=== PATIENT | female | born 1970 | race Caucasian/White ===

== ENCOUNTER 2020-09-26 09:52 | Outpatient (REF) | payer OTHER, SELFPAY ==
[2020-09-26 15:01] LABS: Glucose Urine UA NEG (NEG); Leukocyte Esterase Urine NEG (NEG); Nitrite Urine NEG (NEG); PH 5.5 (5.0-8.0); Specific Gravity - Urine 1.025 (1.005-1.025); Urine Blood NEG (NEG); Urine Ketones NEG (NEG); Urine Protein NEG (NEG-TRACE)
[2020-09-26 15:10] LABS: Appearance Urine CLEAR; Color Urine YELLOW
[2020-09-27 07:22] LABS: BV Int Neg Control Negative (Negative); BV Int Pos Control Positive (Positive)
[2020-10-25 15:19] LABS: CT PCR NOT DETECTED (Not Detect.); NG PCR NOT DETECTED (Not Detect.)
== END 2020-09-26 09:53 | disposition home or self-care (01) ==
LOC: HO.LAB 09:52
PROVIDERS: PCP Internal Medicine; Referring Provider Internal Medicine; Visit Provider Advanced Practice Midwife
DX: B37.3 Candidiasis of vulva and vagina (principal); N89.8 Other specified noninflammatory disorders of vagina; R58 Hemorrhage, not elsewhere classified; Z11.8 Encounter for screening for other infectious and parasitic diseases; Z11.3 Encounter for screening for infections with a predominantly sexual mode of transmission
CPT/HCPCS: 81003; 87255; 87480; 87491; 87510; 87591; 87660

== ENCOUNTER 2020-10-02 10:08 | Outpatient (REF) | payer OTHER, SELFPAY ==
[2020-10-08 20:18] LABS: HPV mRNA E6/E7 rflx Not Detected (Not Detected)
== END 2020-10-02 10:09 | disposition home or self-care (01) ==
LOC: HO.LAB 10:08
PROVIDERS: PCP Internal Medicine; Referring Provider Internal Medicine; Visit Provider Advanced Practice Midwife
DX: Z01.419 Encounter for gynecological examination (general) (routine) without abnormal findings (principal); N89.8 Other specified noninflammatory disorders of vagina; B37.3 Candidiasis of vulva and vagina
CPT/HCPCS: 87624; 87625; 88141; 88142

== ENCOUNTER 2020-12-19 16:10 | Outpatient (REF) | payer OTHER, SELFPAY ==
--- NOTE | ~2020-12-19 | MM_ITS ---
EXAMINATION: MM SCREENING DIGITAL BREAST TOMOSYNTHESIS, BILATERAL CLINICAL INFORMATION: Screening. Asymptomatic. The lifetime risk of breast cancer based on the Tyrer-Cuzick Model is 10%. COMPARISON: Mammography: 06/27/2018, 03/03/2016 TECHNIQUE: Digital breast tomosynthesis is performed in both the craniocaudal and mediolateral oblique views along with computer-aided detection (CAD). Synthesized 2D images are generated from the tomosynthesis. Additional left MLO view is provided. FINDINGS: There are scattered areas of fibroglandular density (ACR BI-RADS breast composition Category b). Parenchymal pattern is similar to prior studies. There are no significant masses, abnormal calcifications, or other abnormalities. There is small oval intramammary node left breast 3:00 position. The axilla and skin contours are unremarkable. MM/MM tomosynthesis screening BI IMPRESSION: No significant changes from prior studies. ASSESSMENT: BI-RADS 2: Benign RECOMMENDATION: Routine annual mammography screening. This patient's information was entered into a reminder system with a target due date for their next mammogram.
== END 2020-12-19 16:11 | disposition home or self-care (01) ==
LOC: HO.MAMMO 16:10
PROVIDERS: PCP Internal Medicine; Visit Provider Internal Medicine
DX: Z12.31 Encounter for screening mammogram for malignant neoplasm of breast (principal)
CPT/HCPCS: 77063; 77067

== ENCOUNTER 2021-10-06 09:55 | Outpatient (REF) | payer OTHER, SELFPAY ==
[2021-10-07 09:32] LABS: BV Int Neg Control Negative (Negative); BV Int Pos Control Positive (Positive)
== END 2021-10-06 09:56 | disposition home or self-care (01) ==
LOC: HO.LAB 09:55
PROVIDERS: Visit Provider Advanced Practice Midwife
DX: Z01.419 Encounter for gynecological examination (general) (routine) without abnormal findings (principal); Z88.1 Allergy status to other antibiotic agents; Z88.0 Allergy status to penicillin; Z88.8 Allergy status to other drugs, medicaments and biological substances
CPT/HCPCS: 87480; 87510; 87660

== ENCOUNTER 2022-02-02 10:13 | Outpatient (REF) | payer OTHER, SELFPAY ==
--- NOTE | ~2022-02-02 | MM_ITS ---
EXAMINATION: MM SCREENING DIGITAL BREAST TOMOSYNTHESIS, BILATERAL CLINICAL INFORMATION: Screening. Asymptomatic. The lifetime risk of breast cancer based on the Tyrer-Cuzick Model is 9%. COMPARISON: Mammography: 12/19/2020, 06/27/2018, 03/03/2016 TECHNIQUE: Digital breast tomosynthesis is performed in both the craniocaudal and mediolateral oblique views along with computer-aided detection (CAD). Synthesized 2D images are generated from the tomosynthesis. FINDINGS: There are scattered areas of fibroglandular density (ACR BI-RADS breast composition Category b). There is a fine fibronodular parenchymal pattern similar to prior exams. There are scattered shifting fibroglandular parenchymal densities overall similar to prior studies. There is no significant mass or interval architectural abnormality, developing density, architectural changes. No abnormal calcifications. The axilla and skin contours are unremarkable. MM/MM tomosynthesis screening BI IMPRESSION: No significant changes from prior exams. ASSESSMENT: BI-RADS 2: Benign RECOMMENDATION: Routine annual mammography screening. This patient's information was entered into a reminder system with a target due date for their next mammogram.
== END 2022-02-02 10:14 | disposition home or self-care (01) ==
LOC: HO.MAMMO 10:13
PROVIDERS: Visit Provider Internal Medicine
DX: Z12.31 Encounter for screening mammogram for malignant neoplasm of breast (principal)
CPT/HCPCS: 77063; 77067

== ENCOUNTER 2022-10-14 08:46 | Outpatient (REF) | payer OTHER, SELFPAY ==
[2022-10-14 10:06] LABS: MANUAL DIFF FLAG NO
[2022-10-14 10:12] LABS: Basophils Absolute Auto 0.1 X10*3/uL (0.0-0.2); Basophils Percent Auto 1.2 % (0-2); Eosinophils Absolute Auto 0.5 X10*3/uL (0.0-0.4); Eosinophils Percent Auto 9.7 % (0-4); Hematocrit 45.8 % (37.0-47.0); Hemoglobin 15.2 g/dl (12.0-16.0); Imm Gran Abs Auto 0.01 X10*3/uL (0.00-0.03); Imm Gran Pct Auto 0.2 % (0.0-0.4); Lymphocytes Absolute Auto 1.6 X10*3/uL (1.2-4.9); Lymphocytes Percent Auto 30.9 % (20-40); Mean Corpuscular HGB Conc 33.2 g/dl (31.0-35.0); Mean Corpuscular Hemoglobin 28.7 pg (27.0-33.0); Mean Corpuscular Volume 86.6 fL (80.0-98.0); Mean Platelet Volume 9.3 fL (9.4-12.3); Monocytes Absolute Auto 0.4 X10*3/uL (0.1-1.2); Monocytes Percent Auto 7.4 % (2-11); Neutrophils Absolute Auto 2.6 x10*3/uL (2.0-8.3); Neutrophils Percent Auto 50.6 % (45-73); Platelet Count 178 X10*3/uL (160-400); Red Blood Count 5.29 X10*6/uL (4.20-5.50); Red Cell Distribution Width 11.7 % (11.0-16.0); White Blood Count 5.1 X10*3/uL (4.8-10.8)
[2022-10-14 11:09] LABS: Alanine Aminotransferase 27 U/L (0-31); Albumin Level 4.4 g/dL (3.5-5.0); Alkaline Phosphatase 106 U/L (39-117); Anion Gap 10 (12-20); Aspartate Amino Transferase 24 U/L (5-31); Bilirubin Total 0.4 mg/dL (0.0-1.0); Blood Urea Nitrogen 13 mg/dL (9-16); Calcium 9.7 mg/dL (8.4-10.2); Carbon Dioxide 29 mmol/L (22-29); Chloride 104 mmol/L (96-108); Cholesterol 261 mg/dL; Estimated Glomerular Filt Rate 52; Glucose Fasting 80 mg/dL (60-99); HDL Cholesterol 93 mg/dL; LDL Cholesterol Calculated 154 mg/dl; Potassium 4.1 mmol/L (3.3-5.1); Sodium 139 mmol/L (135-145); Thyroid Stimulating Hormone 3.22 uIU/mL (0.32-4.0); Total Protein 7.4 g/dL (6.5-8.0); Triglycerides 74 mg/dL
== END 2022-10-14 08:47 | disposition home or self-care (01) ==
LOC: HO.LAB 08:46
PROVIDERS: PCP Internal Medicine; Visit Provider Internal Medicine
DX: Z00.00 Encounter for general adult medical examination without abnormal findings (principal); Z13.0 Encounter for screening for diseases of the blood and blood-forming organs and certain disorders involving the immune mechanism; N95.1 Menopausal and female climacteric states
CPT/HCPCS: 36415; 80053; 80061; 84443; 85025

== ENCOUNTER 2023-02-05 09:24 | Outpatient (REF) | payer OTHER, SELFPAY ==
--- NOTE | ~2023-02-05 | MM_ITS ---
EXAMINATION: MM SCREENING DIGITAL BREAST TOMOSYNTHESIS, BILATERAL CLINICAL INFORMATION: Screening. Asymptomatic. The lifetime risk of breast cancer based on the Tyrer-Cuzick Model is 8%. COMPARISON: Mammography: 02/02/2022, 12/19/2020, 06/27/2018 TECHNIQUE: Digital breast tomosynthesis is performed in both the craniocaudal and mediolateral oblique views along with computer-aided detection (CAD). Synthesized 2D images are generated from the tomosynthesis. FINDINGS: There are scattered areas of fibroglandular density (ACR BI-RADS breast composition Category b). There are no significant masses, abnormal calcifications, or other abnormalities. Fibronodular parenchymal pattern is similar to prior studies. No developing density or architectural abnormality. The axilla and skin contours are unremarkable. There are no significant changes from prior exams. MM/MM tomosynthesis screening BI IMPRESSION: No mammographic evidence of malignancy. ASSESSMENT: BI-RADS 2: Benign RECOMMENDATION: Routine annual mammography screening. This patient's information was entered into a reminder system with a target due date for their next mammogram.
== END 2023-02-05 09:25 | disposition home or self-care (01) ==
LOC: HO.MAMMO 09:24
PROVIDERS: Visit Provider Internal Medicine
DX: Z12.31 Encounter for screening mammogram for malignant neoplasm of breast (principal)
CPT/HCPCS: 77063; 77067

== ENCOUNTER 2023-03-05 15:46 | Outpatient (REF) | payer OTHER, SELFPAY ==
[2023-03-06 12:08] LABS: BV Int Neg Control Negative (Negative); BV Int Pos Control Positive (Positive)
== END 2023-03-05 15:47 | disposition home or self-care (01) ==
LOC: HO.LAB 15:46
PROVIDERS: Visit Provider Physician Assistant Medical
DX: R30.0 Dysuria (principal)
CPT/HCPCS: 87086; 87088; 87186; 87480; 87510; 87660

== ENCOUNTER 2023-04-23 08:51 | Outpatient (REF) | payer OTHER, SELFPAY ==
[2023-04-23 11:23] LABS: Cholesterol 253 mg/dL; HDL Cholesterol 88 mg/dL; LDL Cholesterol Calculated 152 mg/dl; Triglycerides 65 mg/dL
== END 2023-04-23 08:52 | disposition home or self-care (01) ==
LOC: HO.LAB 08:51
PROVIDERS: PCP Internal Medicine; Visit Provider Internal Medicine
DX: E78.5 Hyperlipidemia, unspecified (principal)
CPT/HCPCS: 36415; 80061

== ENCOUNTER 2023-09-29 13:47 | Outpatient (AMB) | payer OTHER, SELFPAY ==
[2023-09-29 13:53] VITALS: BP 120/66; PULSE 70; O2SAT 99; BMI 26.1
--- NOTE | 2023-09-29 13:53 | MHC.PC.OV ---
Vital Signs 09/29/23 13:53 Height 5 ft 4 in Weight 152 lb BMI 26.1 BP 120/66 Blood Pressure Location Lt brachial Position Sitting Pulse 70 Pulse Source Pulse Oximeter Pulse Oximetry (%) 99 Oxygen Delivery Method Room Air Intake Visit Reasons: rash on buttocks Relay Record Clerk Required: No Green Building Materials Designer: Not Required per policy Accompanied by: Self / Same As Patient Allergies amoxicillin [AMOXICILLIN] Allergy (Unknown, Verified 09/29/23 13:53) RASH-HIVES, rash moxifloxacin [From AVELOX] Allergy (Unknown, Verified 09/29/23 13:53) RASH-HIVES penicillin G Allergy (Unknown, Verified 09/29/23 13:53) Unknown Quinolones [QUINOLONES] Allergy (Unknown, Verified 09/29/23 13:53) RASH-HIVES Quinolone Allergy (Unknown, Uncoded 09/29/23 13:53) hives Quinosone Allergy (Unknown, Uncoded 09/29/23 13:53) Unknown Medication List - Last Reconciled 09/30/23 by Checo Guzman MD clotrimazole-betamethasone 1-0.05 % 1 appl topical BID 2 weeks clotrimazole-betamethasone 1-0.05 % 1 appl topical BID 2 weeks clotrimazole-betamethasone 1-0.05 % 1 appl topical BID 2 weeks loratadine (Claritin RediTabs) 10 mg PO DAILY Tobacco use date assessed: 12/25/22 Dental Screening Dental Screen Date: 09/29/23 Did you have a dental visit in the last 12 months?: Yes Did you have a dental problem in the last 6 months where you did not have access to dental care?: No Was dental information given to patient?: Patient has dentist HPI rash on buttocks HPI Details rash on buttocks for a few days PFSH Medical History Left ear pain Physical exam Surgical History [place] teeth removed Status post right foot surgery H/O prior ablation treatment Family History Mother Stroke Social History Housing: House Alcohol intake: current Alcohol intake frequency: other Alcohol type: wine Patient Tobacco Use Status: Never used Tobacco e-Cigarette/Vaping Use: Never Used Second Hand Smoke Exposure: No service: No Current occupational status: employed Gender identity: Female Cognitive needs: No Hearing needs: No Vision needs: No Female Reproductive History Menstrual Age of Menarche: 10 Questionnaire Thrive Questionnaire Date Thrive assessed: 12/25/22 MACHO-7 AMB Questionnaire MACHO-7 Date MACHO - 7 assessed: 12/25/22 Source: Developed by Drs. Harley Jimenez, Erika Núñez, Jose Francisco Garcia and colleagues, with an educational jong from [employer]. Review of Systems Const Denies chills, Denies headache(s) and Denies weight loss ENT Denies headache(s) Card Denies chest pain, Denies syncope, Denies irregular heart rhythm and Denies dyspnea Resp Denies chest congestion, Denies cough and Denies dyspnea GI Denies abdominal pain, Denies change in stool character, Denies nausea and Denies vomiting Musc Denies deformity and Denies joint swelling Neuro Denies syncope and Denies headache(s) Physical exam (Primary Care) Vital Signs: Last Vital Signs Pulse 70 09/29/23 13:53 BP 120/66 09/29/23 13:53 Pulse Ox 99 09/29/23 13:53 Oxygen Delivery Method Room Air 09/29/23 13:53 BMI result Body Mass Index 26.1 Tobacco/Smoking Status: Tobacco use Status Tobacco use date assessed 12/25/22 09/29/23 13:58 Patient Tobacco Use Status Never used Tobacco 09/29/23 13:58 e-Cigarette/Vaping Use Never Used 09/29/23 13:58 Thrive Assessment: Date of Thrive Assessment Date Thrive assessed 12/25/22 09/29/23 13:58 Const General: cooperative, comfortable and no acute distress HENMT Head: Yes normal to inspection Eyes General: appearance normal, both eyes and all related structures Neck Neck: Yes normal visual inspection Skin Other: tinea corporis Assessment and Plan Assessment & Plan (1) Tinea corporis: Code(s): B35.4 - Tinea corporis Plan: rx Medications: New clotrimazole-betamethasone 1-0.05 % 1 appl topical BID 45 grams 2RF 2 weeks clotrimazole-betamethasone 1-0.05 % 1 appl topical BID 45 grams 3RF 2 weeks clotrimazole-betamethasone 1-0.05 % 1 appl topical BID 45 grams 2RF 2 weeks Coding Level of Care Code Est Pt Level 3 (37159) Diagnoses Tinea corporis B35.4
== END 2023-09-29 14:12 | disposition home or self-care (01) ==
PROVIDERS: PCP Internal Medicine; Visit Provider Internal Medicine
DX: B35.4 Tinea corporis (principal)
CPT/HCPCS: 99213

== ENCOUNTER 2023-10-14 12:42 | Outpatient (REF) | payer OTHER, SELFPAY ==
[2023-10-14 15:13] LABS: Appearance Urine Cloudy; Color Urine Yellow; Glucose Urine UA Negative (Negative); Leukocyte Esterase Urine Large (3+) (Negative); Nitrite Urine Negative (Negative); PH 5.5 (5.0-9.0); Specific Gravity - Urine <= 1.005 (1.005-1.025); UMIC TRIGGER UACC YES; Urine Blood Large (3+) (Negative); Urine Ketones Negative (Negative); Urine Protein Negative (Neg-Trace)
[2023-10-14 15:28] LABS: Bacteria Urine 1+ (None Seen); Hyaline Casts Urine 0-2 /LPF (0-2); Squamous Epithelial Cell Urine 0-2 /HPF (0-2); UACC Culture Trigger YES; WBC Urine >50 /HPF (0-5)
== END 2023-10-14 12:43 | disposition home or self-care (01) ==
LOC: HO.LAB 12:42
PROVIDERS: PCP Internal Medicine; Visit Provider Internal Medicine
DX: Z00.00 Encounter for general adult medical examination without abnormal findings (principal); R39.9 Unspecified symptoms and signs involving the genitourinary system; Z13.0 Encounter for screening for diseases of the blood and blood-forming organs and certain disorders involving the immune mechanism
CPT/HCPCS: 81001; 87086; 87088; 87186

== ENCOUNTER 2023-10-20 13:17 | Outpatient (AMB) | payer OTHER, SELFPAY ==
[2023-10-20 13:25] VITALS: BP 120/82; PULSE 100; O2SAT 99; BMI 26.3
--- NOTE | 2023-10-20 13:25 | MHC.PC.OV ---
Vital Signs 10/20/23 13:25 Height 5 ft 4 in Weight 153 lb BMI 26.3 BP 120/82 Blood Pressure Location Lt brachial Position Sitting Pulse 100 Pulse Source Pulse Oximeter Pulse Oximetry (%) 99 Oxygen Delivery Method Room Air Intake Visit Reasons: yeast infection Costume Cutter Required: No Carrot Harvester: Not Required per policy Accompanied by: Self / Same As Patient Allergies amoxicillin [AMOXICILLIN] Allergy (Unknown, Verified 10/20/23 14:45) RASH-HIVES, rash moxifloxacin [From AVELOX] Allergy (Unknown, Verified 10/20/23 14:45) RASH-HIVES penicillin G Allergy (Unknown, Verified 10/20/23 14:45) Unknown Quinolones [QUINOLONES] Allergy (Unknown, Verified 10/20/23 14:45) RASH-HIVES Quinolone Allergy (Unknown, Uncoded 10/20/23 14:45) hives Quinosone Allergy (Unknown, Uncoded 10/20/23 14:45) Unknown Medication List - Last Reconciled 10/21/23 by Checo Guzman MD clotrimazole-betamethasone 1-0.05 % 1 appl topical BID 2 weeks clotrimazole-betamethasone 1-0.05 % 1 appl topical BID 2 weeks clotrimazole-betamethasone 1-0.05 % 1 appl topical BID 2 weeks loratadine (Claritin RediTabs) 10 mg PO DAILY oxycodone 5 mg PO Q6H PRN sulfamethoxazole-trimethoprim 800-160 mg (Bactrim DS) 1 tab PO BID Tobacco use date assessed: 12/25/22 Dental Screening Dental Screen Date: 10/20/23 Did you have a dental visit in the last 12 months?: Yes Did you have a dental problem in the last 6 months where you did not have access to dental care?: No Was dental information given to patient?: Patient has dentist HPI yeast infection HPI Details perianal pain PFSH Medical History Coccydynia Left ear pain Physical exam Surgical History [place] teeth removed Status post right foot surgery H/O prior ablation treatment Family History Mother Stroke Social History Housing: House Alcohol intake: current Alcohol intake frequency: other Alcohol type: wine Patient Tobacco Use Status: Never used Tobacco e-Cigarette/Vaping Use: Never Used Second Hand Smoke Exposure: No service: No Current occupational status: employed Gender identity: Female Cognitive needs: No Hearing needs: No Vision needs: No Female Reproductive History Menstrual Age of Menarche: 10 Questionnaire Thrive Questionnaire Date Thrive assessed: 12/25/22 MACHO-7 AMB Questionnaire MACHO-7 Date MACHO - 7 assessed: 12/25/22 Source: Developed by Drs. Harley Jimenez, Erika Núñez, Jose Francisco Garcia and colleagues, with an educational jong from [employer]. Review of Systems Const Denies chills, Denies headache(s) and Denies weight loss ENT Denies headache(s) Card Denies chest pain, Denies syncope, Denies irregular heart rhythm and Denies dyspnea Resp Denies chest congestion, Denies cough and Denies dyspnea GI Denies abdominal pain, Denies change in stool character, Denies nausea and Denies vomiting Musc Denies deformity and Denies joint swelling Neuro Denies syncope and Denies headache(s) Physical exam (Primary Care) Vital Signs: Last Vital Signs Pulse 100 10/20/23 13:25 BP 120/82 10/20/23 13:25 Pulse Ox 99 10/20/23 13:25 Oxygen Delivery Method Room Air 10/20/23 13:25 BMI result Body Mass Index 26.3 Tobacco/Smoking Status: Tobacco use Status Tobacco use date assessed 12/25/22 10/20/23 13:26 Patient Tobacco Use Status Never used Tobacco 10/20/23 13:26 e-Cigarette/Vaping Use Never Used 10/20/23 13:26 Thrive Assessment: Date of Thrive Assessment Date Thrive assessed 12/25/22 10/20/23 13:26 Const General: cooperative, comfortable, no acute distress and alert Neck Neck: Yes no lymphadenopathy Thyroid: Thyroid normal Resp Effort & Inspection: normal respiratory effort Auscultation: clear to auscultation bilaterally Percussion: percussion normal Cardio Jugular venous distension: no JVD Palpation: normal PMI Rate: regular rate Rhythm: regular rhythm Heart sounds: S1 normal heart sound present and S2 normal heart sound present GI Inspection: Yes normal to inspection Palpation (GI): No hepatosplenomegaly present Skin General skin exam: no rashes or lesions noted Extrem General: Yes no clubbing, cyanosis or edema Assessment and Plan Assessment & Plan (1) Coccydynia: Code(s): M53.3 - Sacrococcygeal disorders, not elsewhere classified Plan: xr and rx Orders: Referrals General Surgery Referral K61.1 - Rectal abscess Medications: New oxycodone Partial Fill upon patient request. 5 mg PO Q6H PRN 20 tabs 0RF pain Coding Level of Care Code Est Pt Level 3 (67545) Diagnoses Coccydynia M53.3
== END 2023-10-20 13:44 | disposition home or self-care (01) ==
PROVIDERS: PCP Internal Medicine; Visit Provider Internal Medicine
DX: M53.3 Sacrococcygeal disorders, not elsewhere classified (principal)
CPT/HCPCS: 99213

== ENCOUNTER 2023-10-20 13:53 | Outpatient (REF) | payer OTHER, SELFPAY ==
--- NOTE | ~2023-10-20 | XR_ITS ---
EXAMINATION: XR PELVIS CLINICAL INFORMATION: Sacrococcygeal disorders. COMPARISON: None available. TECHNIQUE: AP view of the pelvis. FINDINGS: No fracture. Hip joint spaces are maintained. The femoral heads are smooth. Alignment is anatomic. Sacroiliac joints and pubic symphysis are normal. No abnormal soft tissue calcifications. There are tiny pelvic phleboliths. XR/XR pelvis 1-2V IMPRESSION: Normal pelvis.
== END 2023-10-20 13:54 | disposition home or self-care (01) ==
LOC: HO.XRAY 13:53
PROVIDERS: PCP Internal Medicine; Visit Provider Internal Medicine
DX: M53.3 Sacrococcygeal disorders, not elsewhere classified (principal)
CPT/HCPCS: 46600; 72170

== ENCOUNTER 2023-10-20 14:25 | Outpatient (AMB) | payer OTHER, SELFPAY ==
[2023-10-20 14:36] VITALS: BP 120/82; PULSE 100; BMI 26.3
--- NOTE | 2023-10-20 14:36 | MHC.OFFVIS ---
Intake Vital Signs 10/20/23 14:36 Height 5 ft 4 in Weight 153 lb 0.013 oz BMI 26.3 BP 120/82 Blood Pressure Location Lt brachial Position Sitting Pulse 100 Pulse Source Pulse Oximeter Intake Visit Reasons: Rectal abscess Intake Note: This patient presents for an assessment for rectal abscess. Patient c/o; reports yeast infection, reports completed one round of antibiotics, reports discomfort since last week of August 2023. Sporting Goods Salesperson Required: No Fish Filleter: Fish Filleter Present (Veena) and Fish Filleter offered & declined Accompanied by: Self / Same As Patient Allergies amoxicillin [AMOXICILLIN] Allergy (Unknown, Verified 10/20/23 14:45) RASH-HIVES, rash moxifloxacin [From AVELOX] Allergy (Unknown, Verified 10/20/23 14:45) RASH-HIVES penicillin G Allergy (Unknown, Verified 10/20/23 14:45) Unknown Quinolones [QUINOLONES] Allergy (Unknown, Verified 10/20/23 14:45) RASH-HIVES Quinolone Allergy (Unknown, Uncoded 10/20/23 14:45) hives Quinosone Allergy (Unknown, Uncoded 10/20/23 14:45) Unknown Medication List - Last Reconciled 10/20/23 by Karlos Blanca MD clotrimazole-betamethasone 1-0.05 % 1 appl topical BID 2 weeks clotrimazole-betamethasone 1-0.05 % 1 appl topical BID 2 weeks clotrimazole-betamethasone 1-0.05 % 1 appl topical BID 2 weeks loratadine (Claritin RediTabs) 10 mg PO DAILY oxycodone 5 mg PO Q6H PRN sulfamethoxazole-trimethoprim 800-160 mg (Bactrim DS) 1 tab PO BID HPI Rectal abscess HPI Details 53-year-old female referred for pain on the area of the tailbone. She says that she has had this for about 10 days now. She says that this hurts whenever she sits down or lies down in bed. She denies any palpable mass She says that she was being treated for a fungal infection of the gluteal area with clotrimazole betamethasone by Dr. Guzman for the past month. She denies any problems with bowel movements. She denies any bleeding per rectum. She actually points to the sacrococcygeal region as where the pain and tenderness is. She denies any recent trauma to the area. [facility] Medical History Coccydynia Left ear pain Physical exam Surgical History [place] teeth removed Status post right foot surgery H/O prior ablation treatment Family History Mother Stroke Social History Housing: House Alcohol intake: current Alcohol intake frequency: other Alcohol type: wine Patient Tobacco Use Status: Never used Tobacco e-Cigarette/Vaping Use: Never Used Second Hand Smoke Exposure: No service: No Current occupational status: employed Gender identity: Female Cognitive needs: No Hearing needs: No Vision needs: No Female Reproductive History Menstrual Age of Menarche: 10 Review of Systems Const Denies chills and Denies fever(s) Card Denies chest pain, Denies dyspnea and Denies dyspnea on exertion Resp Denies cough, Denies dyspnea and Denies dyspnea on exertion GI Denies hematochezia and Denies change in bowel habits Denies hematuria Musc Denies back pain and Denies limited range of motion Neuro Denies focal weakness and Denies convulsions Psych Denies depression and Denies mood swings Physical Exam Vital Signs: Last Vital Signs Pulse 100 10/20/23 14:36 BP 120/82 10/20/23 14:36 BMI result Body Mass Index 26.3 Const Other: Very anxious General: comfortable and no acute distress Orientation/consciousness: patient oriented x3 Neck Neck: Yes no lymphadenopathy Resp Auscultation: clear to auscultation bilaterally Cardio Rhythm: regular rhythm GI Other: No perianal swelling or redness, no cysts, no induration, no skin changes She is tender on palpation of the coccyx Palpation (GI): Soft to palpation, nontender and no guarding Neuro General: patient oriented x3 Office Procedures Anoscopy She was in keely-knife position. The anoscope was gently inserted. A full examination of the anal canal was done. There were no lesions seen but there is no fullness or induration. There was no bleeding. Digital exam shows no induration or tenderness in the anal canal. She was tender on the coccyx on palpation. There was no palpable mass or redness or swelling [id number] Assessment & Plan Assessment & Plan (1) Coccydynia: Code(s): M53.3 - Sacrococcygeal disorders, not elsewhere classified Plan: She has what appears to be coccydynia at this time. She is very tender to touch on the area of the tailbone. There is no pathology seen in the anal canal. There is no suggestion of any abscess or cyst I told her that the 1st step would be use of NSAIDs for control of the pain. I told her that she can take ibuprofen for this. I will order for an MRI of the pelvis to rule out any other pathology for now I will see her in the office to review this MRI. I assured her that at this point, there is no need to do an I and D for now. Orders: Orders MR pelvis w con 10/20/23 M53.3 - Sacrococcygeal disorders, not elsewhere classified Coding Level of Care Code New Pt Level 3 (32664) Diagnoses Coccydynia M53.3 CPT Codes Details - CPT: 32995-[id number] ([id number])
== END 2023-10-20 15:17 | disposition home or self-care (01) ==
PROVIDERS: PCP Internal Medicine; Visit Provider Surgery
DX: M53.3 Sacrococcygeal disorders, not elsewhere classified (principal)
CPT/HCPCS: 46600; 99203

== ENCOUNTER 2023-11-05 17:30 | Outpatient (REF) | payer OTHER, SELFPAY ==
--- NOTE | ~2023-11-05 | MR_ITS ---
EXAMINATION: MR PELVIS WITHOUT CONTRAST CLINICAL INFORMATION: Sacrococcygeal disorder. Patient reports bilateral pain. COMPARISON: X-ray the pelvis October 2023. TECHNIQUE: MRI the pelvis is performed without contrast on a high-field MRI scanner tailored to evaluate the sacroiliac joints in particular. FINDINGS: SACROILIAC JOINTS: There is some minimal edema in the auodz-ooslayf-vtaf-left ligamentous portion of the sacroiliac articulation. There articular portion of the articulation is normal without effusion, erosions, or marrow edema. There is no fracture. PARTIALLY VISUALIZED LUMBOSACRAL SPINE: There is some minimal endplate edema across the left side of the L5-S1 disc space and right side of the L3-L4 disc space, likely reflective of focal degenerative disc disease. There is decreased T2 signal within both discs compatible with degenerative changes. The remaining visualized bone is unremarkable. NEUROVASCULAR STRUCTURES: Normal. INTRAPELVIC SOFT TISSUES: Normal. MUSCLES/TENDONS: Normal. MR/MR pelvis wo con IMPRESSION: 1. Minimal edema in the right greater than left ligamentous portion of the sacroiliac articulation perhaps related to subacute/acute ligamentous partial tear. No abnormality of the articular portion of the joints. 2. Mild degenerative disc disease in the partially visualized lumbosacral spine.
== END 2023-11-05 17:31 | disposition home or self-care (01) ==
LOC: HO.MRI 17:30
PROVIDERS: PCP Internal Medicine; Visit Provider Surgery
DX: M53.3 Sacrococcygeal disorders, not elsewhere classified (principal)
CPT/HCPCS: 72195

== ENCOUNTER 2023-11-17 15:08 | Outpatient (AMB) | payer OTHER, SELFPAY ==
--- NOTE | 2023-11-17 15:18 | MHC.OFFVIS ---
Intake Intake Visit Reasons: MRI follow-up Intake Note: This patient presents for a follow-up assessment for MRI results. Patient c/o; reports ? recurrence yeast infection, reports redness, reports soreness, reports using Clotrimazole / Betamethasone which cleared the yeast it came back. Classics Teacher Required: No Accompanied by: Self / Same As Patient Allergies amoxicillin [AMOXICILLIN] Allergy (Unknown, Verified 11/17/23 15:18) RASH-HIVES, rash moxifloxacin [From AVELOX] Allergy (Unknown, Verified 11/17/23 15:18) RASH-HIVES penicillin G Allergy (Unknown, Verified 11/17/23 15:18) Unknown Quinolones [QUINOLONES] Allergy (Unknown, Verified 11/17/23 15:18) RASH-HIVES Quinolone Allergy (Unknown, Uncoded 11/17/23 15:18) hives Quinosone Allergy (Unknown, Uncoded 11/17/23 15:18) Unknown Medication List - Last Reconciled 11/17/23 by Karlos Blanca MD clotrimazole-betamethasone 1-0.05 % 1 appl topical BID 2 weeks clotrimazole-betamethasone 1-0.05 % 1 appl topical BID 2 weeks clotrimazole-betamethasone 1-0.05 % 1 appl topical BID 2 weeks loratadine (Claritin RediTabs) 10 mg PO DAILY oxycodone 5 mg PO Q6H PRN sulfamethoxazole-trimethoprim 800-160 mg (Bactrim DS) 1 tab PO BID HPI MRI follow-up HPI Details She is here for follow-up to discuss her MRI. I sent him for an MRI of the pelvis in view of her complaints of coccydynia. She says she actually feels better. She still has some pain mostly on the sacral area now but she says that this is much improved. [facility] Medical History Coccydynia Left ear pain Physical exam Surgical History [place] teeth removed Status post right foot surgery H/O prior ablation treatment Family History Mother Stroke Social History Housing: House Alcohol intake: current Alcohol intake frequency: other Alcohol type: wine Patient Tobacco Use Status: Never used Tobacco e-Cigarette/Vaping Use: Never Used Second Hand Smoke Exposure: No service: No Current occupational status: employed Gender identity: Female Cognitive needs: No Hearing needs: No Vision needs: No Female Reproductive History Menstrual Age of Menarche: 10 Review of Systems Const Denies chills and Denies fever(s) Card Denies chest pain, Denies dyspnea and Denies dyspnea on exertion Resp Denies cough, Denies dyspnea and Denies dyspnea on exertion GI Denies hematochezia and Denies change in bowel habits Denies hematuria Musc Denies back pain and Denies limited range of motion Neuro Denies focal weakness and Denies convulsions Psych Denies depression and Denies mood swings Physical Exam Const Other: Anxious General: comfortable and no acute distress Resp Effort & Inspection: normal respiratory effort Cardio Rate: regular rate Back/Spine/Pelvis Other: No palpable masses the lower back, no significant tenderness Assessment & Plan Assessment & Plan (1) Coccydynia: Code(s): M53.3 - Sacrococcygeal disorders, not elsewhere classified Plan: Her MRI actually shows what may be some edema in the sacroiliac joint risks may suggest a small partial tear. I explained to her this finding. Does state that she is clinically much better. I told her that she can continue with NSAIDs and pain medications She understands the option of being referred to a pain specialist down the line for this. She also was worried about what she thought was fungal infection of the perianal area. Examination today does not suggest this although there is some perianal redness. I told her to just observe good hygiene and to keep the area clean and dry for now. She can otherwise keep using her clotrimazole cream. She understands the plan and is comfortable with this. Coding Level of Care Code Est Pt Level 3 (43806) Diagnoses Coccydynia M53.3
== END 2023-11-17 15:32 | disposition home or self-care (01) ==
PROVIDERS: PCP Internal Medicine; Visit Provider Surgery
DX: M53.3 Sacrococcygeal disorders, not elsewhere classified (principal)
CPT/HCPCS: 99213

== ENCOUNTER → 2023-11-17 15:08 | Outpatient (BNVA) | payer OTHER, SELFPAY | PROVIDERS: PCP Internal Medicine; Visit Provider Surgery ==

== ENCOUNTER → 2023-12-08 08:51 | Outpatient (BNVA) | payer OTHER, SELFPAY | PROVIDERS: PCP Internal Medicine; Visit Provider Advanced Practice Midwife ==

== ENCOUNTER 2024-04-05 14:53 | Outpatient (REF) | payer OTHER, SELFPAY | END 2024-04-05 14:54 | disposition home or self-care (01) | LOC: HO.MAMMO 14:53 | PROVIDERS: PCP Internal Medicine; Visit Provider Internal Medicine | DX: Z12.31 Encounter for screening mammogram for malignant neoplasm of breast (principal) | CPT/HCPCS: 77063; 77067 ==

== ENCOUNTER → 2024-04-05 15:00 | Outpatient (BNV) | payer OTHER, SELFPAY | PROVIDERS: PCP Internal Medicine; Visit Provider Radiology Diagnostic Radiology | DX: Z12.31 Encounter for screening mammogram for malignant neoplasm of breast (principal) | CPT/HCPCS: 77063; 77067 ==

== ENCOUNTER 2024-04-11 08:29 | Outpatient (REF) | payer OTHER, SELFPAY ==
[2024-04-11 09:13] LABS: Appearance Urine Clear; Color Urine Yellow; Glucose Urine UA Negative (Negative); Leukocyte Esterase Urine Small (1+) (Negative); Nitrite Urine Negative (Negative); PH 6.5 (5.0-9.0); UMIC TRIGGER UACC YES; Urine Blood Negative (Negative); Urine Ketones Negative (Negative); Urine Protein Negative (Neg-Trace)
[2024-04-11 09:28] LABS: Bacteria Urine None Seen (None Seen); Hyaline Casts Urine 0-2 /LPF (0-2); RBC Urine 0-2 /HPF (0-2); Squamous Epithelial Cell Urine 0-2 /HPF (0-2); UACC Culture Trigger YES; WBC Urine 0-5 /HPF (0-5)
[2024-04-11 09:31] LABS: Cholesterol 241 mg/dL (<200); HDL Cholesterol 83 mg/dL (>40); LDL Cholesterol Calculated 139 mg/dL (<100); Triglycerides 95 mg/dL (<150)
== END 2024-04-11 08:30 | disposition home or self-care (01) ==
LOC: HO.LAB 08:29
PROVIDERS: PCP Internal Medicine; Visit Provider Internal Medicine
DX: E78.5 Hyperlipidemia, unspecified (principal); R39.9 Unspecified symptoms and signs involving the genitourinary system
CPT/HCPCS: 36415; 80061; 81001; 81003; 87086

== ENCOUNTER 2024-06-05 13:44 | Outpatient (AMB) | payer BC, SELFPAY ==
[2024-06-05 13:49] VITALS: BP 118/78; PULSE 83; O2SAT 98; BMI 26.1
--- NOTE | 2024-06-05 13:49 | MHC.PC.OV ---
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 Accompanied by: Self / Same As Patient Allergies amoxicillin [AMOXICILLIN] Allergy (Unknown, Verified 06/05/24 13:49) RASH-HIVES, rash moxifloxacin [From AVELOX] Allergy (Unknown, Verified 06/05/24 13:49) RASH-HIVES penicillin G Allergy (Unknown, Verified 06/05/24 13:49) Unknown Quinolones [QUINOLONES] Allergy (Unknown, Verified 06/05/24 13:49) RASH-HIVES Quinolone Allergy (Unknown, Uncoded 06/05/24 13:49) hives Quinosone Allergy (Unknown, Uncoded 06/05/24 13:49) Unknown Medication List - Last Reconciled 06/06/24 by Checo Guzman MD clotrimazole-betamethasone 1-0.05 % 1 appl topical BID 2 weeks clotrimazole-betamethasone 1-0.05 % 1 appl topical BID 2 weeks clotrimazole-betamethasone 1-0.05 % 1 appl topical BID 2 weeks loratadine (Claritin RediTabs) 10 mg PO DAILY Tobacco use date assessed: 06/05/24 Dental Screening Dental Screen Date: 10/20/23 Did you have a dental visit in the last 12 months?: Yes Did you have a dental problem in the last 6 months where you did not have access to dental care?: No Was dental information given to patient?: Patient has dentist HPI PE HPI Details Healthy [facility] Medical History Coccydynia Left ear pain Physical exam Surgical History [place] teeth removed Status post right foot surgery H/O prior ablation treatment Family History Mother Stroke Social History Housing: House Alcohol intake: current Alcohol intake frequency: other Alcohol type: wine Patient Tobacco Use Status: Never used Tobacco Tobacco use type: Cigarette e-Cigarette/Vaping Use: Never Used Second Hand Smoke Exposure: No service: No Current occupational status: employed Gender identity: Female Cognitive needs: No Hearing needs: No Vision needs: No Female Reproductive History Menstrual Age of Menarche: 10 Questionnaire PHQ-9 Over the last 2 weeks, how often have you been bothered by any of the following problems? 1. Little interest or pleasure in doing things: not at all 2. Feeling down, depressed, or hopeless: not at all 3. Trouble falling or staying asleep, or sleeping too much: not at all 4. Feeling tired or having little energy: not at all 5. Poor appetite or overeating: not at all 6. Feeling bad about yourself - or that you are a failure or have let yourself or your family down: not at all 7. Trouble concentrating on things, such as reading the newspaper or watching television: not at all 8. Moving or speaking so slowly that other people could have noticed. Or the opposite - being so fidgety or restless that you have been moving around a lot more than usual: not at all 9. Thoughts that you would be better off or of hurting yourself in some way: not at all Total score: 0 Depression Screening Interpretation: Negative Depression Screening Done: Yes 63024 - PHQ-9 Billing: Yes Source: Developed by Drs. Harley Jimenez, Erika Núñez, Jose Francisco Garcia and colleagues, with an educational jong from [facility]. Thrive Questionnaire Date Thrive assessed: 06/05/24 I am a: Patient What is your living situation today?: I have a steady place to live Within the past 12 months, did the food you bought not last and you didn't have the money to get more?: Never true Within the past 12 months, did you worry whether your food would run out before you got money to buy more?: Never true Do you have trouble paying for medicines?: No Do you have trouble getting transportation to medical appointments?: No Do you have trouble paying your heating and electricity bill?: No Do you have trouble taking care of your child, family member or friend?: No Do you have trouble with day-to-day activities such as bathing, preparing meals, shopping, managing finances, etc.?: No Are you currently unemployed and looking for a job?: No Are you interested in more education?: No THRIVE Score: 0 AUDIT C Alcohol Use Questionnaire (AUDIT-C) 1. How often do you have a drink containing alcohol?: Never 3. How often do you have six or more drinks on one occasion?: Never Total Score: 0 Score Reviewed/Action Taken: No MACHO-7 AMB Questionnaire MACHO-7 Date MACHO - 7 assessed: 06/05/24 Feeling nervous, anxious, or on edge: 0 = Not at all Not being able to stop or control worryin = Not at all Worrying too much about different things: 0 = Not at all Trouble relaxin = Not at all Being so restless that it is hard to sit still: 0 = Not at all Becoming easily annoyed or irritable: 0 = Not at all Feeling afraid as if something awful might happen: 0 = Not at all Total MACHO-7 score (0-4 normal; 5-9 mild; 10-14 moderate; 15-21 severe): 0 Source: Developed by Drs. Harley Jimenez, Erika Núñez, Jose Francisco Garcia and colleagues, with an educational jong from [facility]. MACHO-7 Assessment Billing MACHO-7 Assessment Tool: MACHO-7 Assessment 80135 Review of Systems Const Denies chills, Denies fatigue, Denies headache(s) and Denies weight loss Eyes Denies change in vision, Denies diplopia and Denies eye pain ENT Denies vertigo, Denies dizziness, Denies headache(s) and Denies nasal discharge Card Denies chest pain, Denies rapid heart rate and Denies dyspnea on exertion Resp Denies chest congestion, Denies cough, Denies pain with cough and Denies dyspnea on exertion GI Denies abdominal pain, Denies hematochezia and Denies change in bowel habits Musc Denies myalgias, Denies arthralgias and Denies joint swelling Skin/Breast Denies lesions and Denies unusual bruising Neuro Denies vertigo, Denies dizziness, Denies headache(s) and Denies focal weakness Endo Denies fatigue Physical exam (Primary Care) Vital Signs: Last Vital Signs Pulse 83 06/05/24 13:49 BP 118/78 06/05/24 13:49 Pulse Ox 98 06/05/24 13:49 Oxygen Delivery Method Room Air 06/05/24 13:49 BMI result Body Mass Index 26.1 Tobacco/Smoking Status: Tobacco use Status Tobacco use date assessed 06/05/24 06/05/24 13:54 Patient Tobacco Use Status Never used Tobacco 06/05/24 13:54 Tobacco use type Cigarette 06/05/24 13:54 e-Cigarette/Vaping Use Never Used 06/05/24 13:54 PHQ-9: PHQ-9 Score PHQ-9: Total score 0 06/05/24 13:54 Depression Screening Interpretation: Negative Thrive Assessment: Date of Thrive Assessment Date Thrive assessed 06/05/24 06/05/24 13:54 Const General: cooperative, healthy appearing and no acute distress Orientation/consciousness: oriented to person, oriented to place and oriented to time HENMT Head: Yes normal to inspection, Yes normocephalic and Yes atraumatic Mouth: Normal oral and palatal mucosa present and tongue normal Throat: Yes posterior oropharynx normal and Yes uvula midline Eyes General: appearance normal, both eyes and all related structures Neck Neck: Yes normal visual inspection, Yes full ROM and Yes no lymphadenopathy Thyroid: Thyroid normal Carotids: normal carotid upstroke Chest Chest palpation & inspection: normal inspection of the chest Resp Effort & Inspection: normal respiratory effort and able to speak in complete sentences Auscultation: clear to auscultation bilaterally Cardio Jugular venous distension: no JVD Palpation: normal PMI Rate: regular rate Rhythm: regular rhythm Heart sounds: S1 normal heart sound present and S2 normal heart sound present GI Inspection: Yes normal to inspection Palpation (GI): Soft to palpation and No hepatosplenomegaly present Auscultation: normal bowel sounds General: Yes no CVA tenderness Back/Spine/Pelvis Back: no CVA tenderness Skin General skin exam: no rashes or lesions noted Neuro General: oriented to person, oriented to place and oriented to time Extrem General: Yes normal to inspection and Yes full ROM Assessment and Plan Assessment & Plan (1) Physical exam: Code(s): Z00.00 - Encounter for general adult medical examination without abnormal findings Plan: stable; do labs Orders: Orders Complete Blood Count Auto Diff 06/05/24 Z13.0 - Encounter for screening for diseases of the blood and blood-forming organs and certain disorders involving the immune mechanism Comprehensive [place]. Panel Fast 06/05/24 Z13.9 - Encounter for screening, unspecified Lipid Panel 06/05/24 Z13.220 - Encounter for screening for lipoid disorders Thyroid Stimulating Hormone 06/05/24 Z13.29 - Encounter for screening for other suspected endocrine disorder Coding Level of Care Code Est Pt Prev Care 40-64y(90939) Diagnoses Physical exam Z00.00 Additional Codes MACHO-7 Assessment Billing - MACHO-7 Assessment Tool: MACHO-7 Assessment 64247 ([id number])
== END 2024-06-05 14:06 | disposition home or self-care (01) ==
PROVIDERS: PCP Internal Medicine; Visit Provider Internal Medicine
DX: Z00.00 Encounter for general adult medical examination without abnormal findings (principal)
CPT/HCPCS: 99396

== ENCOUNTER 2024-11-08 08:45 | Outpatient (REF) | payer OTHER, SELFPAY ==
--- OUTSIDE RECORDS SUMMARY | 2024-11-08 09:02 | XMS_ITS | Data Portability ---
Author Organization [facility] [address] Address [address] [place] [id number] Assessment No assessment recorded. Plan of Treatment Reminders Order Date Submit Date Provider Last Modified By Organization Details Last Modified Time Details Appointments None recorded. Lab culture, urine 2023 024 [place] [facility] ([facility], [address] [place] [address], [place], [address], 4 18:06:02 urinalysis, dipstick 2023 024 [place] [address] [facility], [address] [place], [address], 4 20:25:10 Referral None recorded. Procedures None recorded. Surgeries None recorded. Imaging None recorded. Medication Orders Pyridium 200 mg tablet 2023 024 [facility] #[id number], [address] [place], [address], 4 20:25:09 sulfamethox azole 800 mg-trimetho prim 160 mg tablet 2023 024 [facility] #[id number], [address] [place], [address], 4 20:25:10 Diflucan 150 mg tablet 2023 024 [facility] #[id number], [address] [place], [address], 20:25:10 Patient TargetsNo targets recorded. Patient Instructions Encounter Date Encounter Id Patient Instructions Last Modified By Organization Details Last Modified Time 02/08/2024 [id number] painful urinatio n (dysuria): care instructions [email or web address] Not available 02/08/2024 20:25:07 Urinary Tract Infections (UTI) in Men: Care Instructions [email or web address] Not available 02/08/2024 20:25:07 specimen collection & handling* MARGARETTE Not available 02/11/2024 09:58:28 Patient strongly advised to go to the ER if any new onset signs and symptoms or any worsening of current signs and symptoms. Patient advised to follow up with PCP within 5-7 days. Patient expresses clear understanding of the above advice and agrees. [email or web address] Not available 02/16/2024 20:32:33 Reason for Referral None Reported. Results Created Date Observation Date Name Description Value Unit Range Abnormal Flag Note LastModifiedBy Organization Detail LastModifiedTime 02/08/2002/11/2024 URINE CULTU REARISTEO NE urine culture, routine FINAL REPORT abnormal Not Available [facility] ([facility]) [address] [facility], [place], [address], 02/11/2024 12:06:14 02/08/2002/11/2024 URINE CULTU REARISTEO NE result 1 ESCHER ICHIA COLI abnormal Cefaz nasir <=4 ug/mL Cefaz nasir with an PERRY <=16 predi cts susce ptibi lity to the oral agent s cefac harvey, cefdi roberto carlos, cefpo doxim e, cefpr ozil, cefur oxime , cepha lexin , and lorac arbef when used for thera py of uncom plica fer urina ry tract infec tions due to E. coli, Klebs iella pneum oniae , and Prote us mirab ilis. 10,00 0-25, 000 colon y formi ng units per mL Not Available [facility] ([facility]) [address] [facility], [place], [address], 02/11/2024 12:06:14 02/08/20 24 02/11/2024 URINE CULTU RE, ROUTI NE antimicrobia l susceptibili ty COMMEN T S = Susce ptibl e; I = Inter media te; R = Resis tant P = Posit amarilys; N = Negat amarilys MICS are expre ssed in micro grams per mL Antib iotic RSLT# 1 RSLT# 2 RSLT# 3 RSLT# 4 Amoxi cilli n/Cla vulan ic Acid S Ampic illin S Cefep shlomo S Ceftr iaxon e S Cefur oxime S Cipro floxa joleen S Ertap enem S Genta micin S Imipe nem S Levof loxac in S Merop enem S Nitro furan toin S Piper acill in/Ta zobac dailey S Tetra cycli ne S Tobra mycin S Trime thopr im/Lux lfa S Not Available [facility] ([facility]) [address] [facility], [place], [address], 02/11/2024 12:06:14 02/08/20 24 02/08/2024 urina lysis , dipst ick Unknown Analyte Normal = light yellow Not Available [facility] [address] [place] [address], [phone], 02/08/2024 18:21:26 02/08/20 24 02/08/2024 urina lysis , dipst ick Unknown Analyte Light Yellow Not Available [facility] [address] [place] [address], [phone], 02/08/2024 18:21:26 02/08/20 24 02/08/2024 urina lysis , dipst ick Unknown Analyte Normal = clear Not Available [facility] [address] [place] [address], [phone], 02/08/2024 18:21:26 02/08/20 24 02/08/2024 urina lysis , dipst ick Unknown Analyte Clear Not Available [facility] [address] [place] [address], [phone], 02/08/2024 18:21:26 02/08/20 24 02/08/2024 urina lysis , dipst ick Unknown Analyte Normal = negati ve Not Available [facility] [address] [place] [address], [phone], 02/08/2024 18:21:26 02/08/20 24 02/08/2024 urina lysis , dipst ick Unknown Analyte Negati ve Not Available [facility] [address] [place] [address], [phone], 02/08/2024 18:21:26 02/08/20 24 02/08/2024 urina lysis , dipst ick Unknown Analyte Normal = Negati ve Not Available [facility] [address] [place] [address], [phone], 02/08/2024 18:21:26 02/08/20 24 02/08/2024 urina lysis , dipst ick Unknown Analyte Negati ve Not Available [facility] [address] [place] [address], [phone], 02/08/2024 18:21:26 02/08/20 24 02/08/2024 urina lysis , dipst ick Unknown Analyte Normal = Negati ve Not Available [facility] [address] [place] [address], [phone], 02/08/2024 18:21:26 02/08/20 24 02/08/2024 urina lysis , dipst ick Unknown Analyte Negati ve Not Available [facility] [address] [place] [address], [address], 02/08/2024 18:21:26 02/08/20 24 02/08/2024 urina lysis , dipst ick Unknown Analyte Normal = 1.010, 1.015, 1.020 Not Available [facility] [address] [place] [address], [phone], 02/08/2024 18:21:26 02/08/20 24 02/08/2024 urina lysis , dipst ick Unknown Analyte 1.010 Not Available [address], [phone], 02/08/2024 18:21:26 02/08/20 24 02/08/2024 urina lysis , dipst ick Unknown Analyte Normal = Negati ve Not Available [facility] ie [address], [address], 02/08/2024 18:21:26 02/08/20 24 02/08/2024 urina lysis , dipst ick Unknown Analyte Modera te Not Available [facility] ie [address], [address], 02/08/2024 18:21:26 02/08/20 24 02/08/2024 urina lysis , dipst ick Unknown Analyte Normal = 6.5, 7.0, 7.5, 8.0 Not Available [facility] ie [address], [address], 02/08/2024 18:21:26 02/08/20 24 02/08/2024 urina lysis , dipst ick Unknown Analyte 7.0 Not Available [address], [address], 02/08/2024 18:21:26 02/08/20 24 02/08/2024 urina lysis , dipst ick Unknown Analyte Normal = Negati ve Not Available [facility] ie [address], [address], 02/08/2024 18:21:26 02/08/20 24 02/08/2024 urina lysis , dipst ick Unknown Analyte Negati ve Not Available [facility] [address] [place] [address], [phone], 02/08/2024 18:21:26 02/08/20 24 02/08/2024 urina lysis , dipst ick Unknown Analyte Normal = 0.2, 1.0 Not Available [facility] [address] [place] [address], [address], 02/08/2024 18:21:26 02/08/20 24 02/08/2024 urina lysis , dipst ick Unknown Analyte 0.2 E.U./d L Not Available [facility] [address] [place] [address], [phone], 02/08/2024 18:21:26 02/08/20 24 02/08/2024 urina lysis , dipst ick Unknown Analyte Normal = Negati ve Not Available [facility] [address] [place] [address], [phone], 02/08/2024 18:21:26 02/08/20 24 02/08/2024 urina lysis , dipst ick Unknown Analyte Negati ve Not Available [facility] [address] [place] [address], [address], 02/08/2024 18:21:26 02/08/20 24 02/08/2024 urina lysis , dipst ick Unknown Analyte Normal = Negati ve Not Available [facility] [address] [place] [address], [phone], 02/08/2024 18:21:26 02/08/20 24 02/08/2024 urina lysis , dipst ick Unknown Analyte Small Not Available [facility] [address] [place] [address], [phone], 02/08/2024 18:21:26 Result Notes None recorded. Problems No Known Problems Medical Equipment None Reported. Allergies Allergen ID Allergen Name Allergen Category Reaction Reaction Severity Criticality Documentation Date Start Date Code Code System Note Provider Name and Address Organization Details Recorded Time [id number] amoxicill in medicatio n Not available Not available Not available 02/08/2024 723 RxNorm ROSANA ELIZABETHO null, [place] - [facility] 18:18:43 512152 Product containin g penicilli n and antibioti c (product) medicatio n Not available Not available Not available 02/08/2024 09832 05 SNOMED ROSANA MINEO null, [place] - [facility] 18:18:48 005542 Product containin g quinolone and antibioti c (product) medicatio n Not available Not available Not available 02/08/2024 08028 008 SNOMED ROSANA MINEO null, [place] - [facility] 18:18:59 [id number] Avelox medicatio n Not available Not available Not available 02/08/2024 30544 6 RxNorm ROSANA MINEO null, [place] - [facility] 18:19:07 Medications Name Sig Start Date Stop Date Status Note LastModified by Organization Details LastModified Time Pyridium 200 mg tablet Take 1 tablet twice a day by oral route as directed for 3 days, for Dysuria. 2023 active Not Available Not Available Not Avai lable Diflucan 150 mg tablet Take 1 tablet as needed by oral route as directed. 2023 active Not Available Not Available Not Avai lable sulfamethoxazo le 800 mg-trimethopri m 160 mg tablet Take 1 tablet twice a day by oral route as directed for 10 days, for UTI. 2023 active Not Available Not Available Not Avai lable Osteo Bi-Flex active Not Available Not Available Not Available Vitals Date Recorded Body height Provider Name an d Address Organization Details Last Updated DateTime 02/08/2024 162.56 cm ROSANA ROSE PA - [facility] 0 02/08/2024 18:20:28 Date Recorded Body mass index (BMI) Body weight Provider Name and Address Organization Details Last Updated DateTime 02/08/2024 25.1 kg/m2 43066.49 g ROSANA ROSE PA - [facility] 02/08/2024 18:20:31 Date Recorded Respiratory rate Provider Name a nd Address Organization Details Last Updated DateTime 02/08/2024 18 /min ROSANA ROSE PA - [facility] 0 02/08/2024 18:20:55 Date Recorded Body temperature Provider Name a nd Address Organization Details Last Updated DateTime 02/08/2024 98.1 [degF] ROSANA ROSE PA - [facility] 02/08/2024 18:20:58 Date Recorded Heart rate Provider Name an d Address Organization Details Last Updated DateTime 02/08/2024 71 /min ROSANA ROSE PA - [facility] 0 02/08/2024 18:21:04 Date Recorded Oxygen saturation Oxygen saturation in Arterial blood by Pulse oximetry Provider Name and Address Organization Details Last Updated DateTime 02/08/2024 99 % 99 % ROSANA ROSE PA - [facility] 02/08/2024 18:21:07 Date Recorded Systolic blood pressure Diastolic blood pressure Provider Name and Address Organization Details Last Updated DateTime 02/08/2024 128 mm[Hg] 85 mm[Hg] ROSANA ROSE PA - [facility] 02/08/2024 18:21:19 Social History Question Answer Notes LastModified by Organizat ion Details LastModified Time Tobacco Smoking Status Never Smoker ROSANA ROSE null, [place] - [facility] 02/08/2024 18:19:54 What Is Your Level Of Alcohol Consumption? None Information not available 02/08/2024 Do You Use Any Illicit Or Recreational Drugs? No Information not available 02/08/2024 Do You Or Have You Ever Used Any Other Forms Of Tobacco Or Nicotine? No Information not available 02/08/2024 Sex: Unknown Functional Status None recorded. Mental Status None recorded. Family History Nothing Reported. Medical History No medical history recorded. Gynecological History Statement/Question Response Is there any chance of ? No Obstetrics History GPAL:G 0 P 0 0 0 0 Past Encounters Encounter ID Performer Location Encounter Start Date Encounter Closed Date Diagnosis/Indication Diagnosis SNOMED-CT Code Diagnosis ICD10 Code Diagnosis Note [id number] [address] [address] 09/03/2016 16:21:02 09/03/2016 17:29:30 [id number] [facility] [address] [place] [phone] 12/01/2017 18:18:11 12/01/2017 19:53:14 [id number] [facility] [address] 03/12/2022 16:12:59 03/12/2022 17:22:15 [id number] Lubna Dietrich [facility] [address] [place] [id number] 02/08/2024 18:09:40 02/08/2024 20:26:14 Acute urinary tract infection 478220473 N39.0 .TA-UTI_Ma le-D/C Dysuria 43673316 R30.0 Health Concerns Section Related Observation LastModified by Organization Detai ls LastModified Time None Recorded Concern Status LastModified by Organization Details LastModified Time None Recorded Advance Directives Directive None Recorded Payers Encounter Date Sequence Insurance Name Policy Number Policy Mares Covered Member ID Mares Member ID Guarantor Name 09/03/2016 1 [employer] [id number] Errol Mont[place]ro [id number] Candi [place] 12/01/2017 1 [employer] [id number] Errol [place] [id number] Candi Grimm Doktsergio 02/08/2024 1 [employer]) [id number] Errol [employer] [id number] Candi [place] Notes Date Note Type Note Provider Name and Address Organization Details Recorded Time text/html Urinary Complaint FemaleReported bypatient.source of patient informationInformation obtained from patient UTI Symptoms:no blood in the urine; no fever/chills;urgency;urinar y frequency Severity:moderate Duration:started ; 2 days Modifying Factors:nothing gives relief; No other complaints Lubna Dietrich MD [address] [place], [place] [address], [address], [place] - [facility] 02/16/2024 20:32:53 OBGyn Episode No OBEpisode recorded.
--- OUTSIDE RECORDS SUMMARY | 2024-11-08 09:02 | XMS_ITS | Patient Health Record ---
Author Organization [facility] Address [address] [facility] [place] [address] Care Team Providers Care Housekeeping Manager Name Role Phone Megan MARTINEZ, [place] Primary Care Provider Joshua Scanlon Unavailable [phone] Allergies Allergen (clinical drug ingredient) Drug/Non Drug Allergy documented on EMR Reaction Allergy Type Onset Date Status amoxicillin Amoxicillin rash Drug Allergy Act amarilys Substance with penicillin structure and antibacterial mechanism of action (substance) Penicillins spots/dots, rash Drug Allergy Active Medicinal quinolone and acting as antibacterial agent (FN) Quinolones pass out Drug Allergy Active Reason For Referral No Information Medications Medication SIG (Take, Route, Frequency, Duration) Notes Start Date End Date Status Claritin 10 MG 1 tablet Orally Once a day Unknown Osteo Bi-Flex One Per Day Unknown Flax Seed Oil 1000 MG as directed Orally Unknown Align Probiotic Unknown Social History Tobacco Use: Social History Observation Description Date Details (start date - stop date) Never Smoker NA - NA Tobacco Use/Smoking Question Answer Notes Are you a: nonsmoker Additional Findings: Tobacco Non-User Current no n-smoker Alcohol Screen Question Answer Notes Did you have a drink contain ing alcohol in the past year? Yes How often did you have a dri nk containing alcohol in the past year? 2 to 4 times a month (2 points) Points 2 Interpretation Negative Tobacco use other than smoking: Question Answer Notes Are you an other tobacco user? No Problems Problem Type SNOMED Code ICD Code Onset Dates Problem Status W/U Status Risk Notes Problem Acquired hallux valgus (60109557) Hallux valgus (acquired), left foot (M20.12) Active confirmed Problem Acquired hallux valgus (27235292) Hallux valgus (acquired), right foot (M20.11) Active confirmed Plan Of Treatment Pending Test Test Name Order Date X ray : Foot, left 3V 03/22/2023 X ray : Foot, right 3V 03/22/2023 Insurance Providers Payer Name Payer Address Payer Phone Subscriber Number Group Number Insured Name Patient Relationship to Insured Coverage Start Date Coverage End Date [facility] [address] [place] [address] [id number] Errol Montenegro Spouse - patient is the spouse of the insured [facility] [address] [place] [address] [phone] [id number] Candi Montenegro Self - patient is the insured Medical (General) History Medical History History ICD Code osteoarthritis Knee Pain Chicken pox Broken Thumb Acupuncture for Left Knee Arthritis Surgical History Surgery Date(Month/Year) Uterine ablation 11/2015 Bone removal, 2 Toes of Right Foot 02/04 18
[2024-11-08 11:48] LABS: MANUAL DIFF FLAG NO
[2024-11-08 12:03] LABS: Basophils Absolute Auto 0.1 X10*3/uL (0.0-0.2); Eosinophils Absolute Auto 0.7 X10*3/uL (0.0-0.4); Eosinophils Percent Auto 11.2 % (0-4); Hematocrit 42.9 % (37.0-47.0); Hemoglobin 14.1 g/dl (12.0-16.0); Imm Gran Abs Auto 0.01 X10*3/uL (0.00-0.03); Imm Gran Pct Auto 0.2 % (0.0-0.4); Lymphocytes Absolute Auto 1.8 X10*3/uL (1.2-4.9); Lymphocytes Percent Auto 31.1 % (20-40); Mean Corpuscular HGB Conc 32.9 g/dl (31.0-35.0); Mean Corpuscular Hemoglobin 28.4 pg (27.0-33.0); Mean Corpuscular Volume 86.5 fL (80.0-98.0); Mean Platelet Volume 9.9 fL (9.4-12.3); Monocytes Absolute Auto 0.4 X10*3/uL (0.1-1.2); Monocytes Percent Auto 6.1 % (2-11); Neutrophils Percent Auto 50.4 % (45-73); Platelet Count 198 X10*3/uL (160-400); Red Blood Count 4.96 X10*6/uL (4.20-5.50); Red Cell Distribution Width 12.2 % (11.0-16.0); White Blood Count 5.9 X10*3/uL (4.8-10.8)
[2024-11-08 12:15] LABS: Appearance Urine Clear; Color Urine Yellow; Glucose Urine UA Negative (Negative); Leukocyte Esterase Urine Negative (Negative); Nitrite Urine Negative (Negative); Urine Blood Negative (Negative); Urine Ketones Negative (Negative); Urine Protein Negative (Neg-Trace)
[2024-11-08 13:36] LABS: Vitamin D 25-OH Total 57.8 ng/mL (>30)
[2024-11-08 13:43] LABS: Alanine Aminotransferase 113 U/L (0-31); Albumin Level 4.2 g/dL (3.5-5.0); Alkaline Phosphatase 102 U/L (39-117); Anion Gap 9 (12-20); Aspartate Amino Transferase 59 U/L (5-31); Bilirubin Total 0.3 mg/dL (0.0-1.0); Blood Urea Nitrogen 13 mg/dL (9-16); Carbon Dioxide 29 mmol/L (22-29); Chloride 108 mmol/L (96-108); Cholesterol 231 mg/dL (<200); Estimated Glomerular Filt Rate > 60; Glucose Fasting 79 mg/dL (60-99); HDL Cholesterol 83 mg/dL (>40); LDL Cholesterol Calculated 134 mg/dL (<100); Potassium 4.1 mmol/L (3.3-5.1); Sodium 142 mmol/L (135-145); Total Protein 7.5 g/dL (6.5-8.0); Triglycerides 74 mg/dL (<150)
[2024-11-08 13:47] LABS: Thyroid Stimulating Hormone 2.53 uIU/mL (0.32-4.0)
[2024-11-08 14:58] LABS: Folate 10.9 ng/mL (> or = 4.0); Vitamin B12 604 pg/mL (200-900)
[2024-11-12 12:54] LABS: VITAMIN D (1,25 OH) D3 42 pg/mL; Vit D (1,25-Dihydroxy) Total 42 pg/mL (18-72); Vitamin D (1,25 OH) D2 <8 pg/mL
== END 2024-11-08 08:46 | disposition home or self-care (01) ==
LOC: HO.WFDLDS 08:45
PROVIDERS: Physician Assistant; Visit Provider Internal Medicine
DX: K14.3 Hypertrophy of tongue papillae (principal); Z13.0 Encounter for screening for diseases of the blood and blood-forming organs and certain disorders involving the immune mechanism; Z13.9 Encounter for screening, unspecified; Z13.220 Encounter for screening for lipoid disorders; Z13.29 Encounter for screening for other suspected endocrine disorder; R39.9 Unspecified symptoms and signs involving the genitourinary system
CPT/HCPCS: 36415; 80053; 80061; 81003; 82306; 82607; 82652; 82746; 84443; 85025

== ENCOUNTER 2024-11-13 10:19 | Outpatient (AMB) | payer OTHER, SELFPAY ==
--- NOTE | 2024-11-13 10:31 | MHC.PC.OV ---
Vital Signs 11/13/24 10:34 Height 5 ft 4 in Weight 152 lb BMI 26.1 BP 122/80 Blood Pressure Location Lt brachial Position Sitting Pulse 80 Pulse Source Pulse Oximeter Pulse Oximetry (%) 96 Oxygen Delivery Method Room Air Intake Visit Reasons: Labs F/U Intake Note: Patient here for a follow up labs Denture Technician Required: No Accompanied by: Self / Same As Patient Allergies amoxicillin [AMOXICILLIN] Allergy (Unknown, Verified 11/13/24 10:33) RASH-HIVES, rash moxifloxacin [From AVELOX] Allergy (Unknown, Verified 11/13/24 10:33) RASH-HIVES penicillin G Allergy (Unknown, Verified 11/13/24 10:33) Unknown Quinolones [QUINOLONES] Allergy (Unknown, Verified 11/13/24 10:33) RASH-HIVES Quinolone Allergy (Unknown, Uncoded 06/05/24 13:49) hives Quinosone Allergy (Unknown, Uncoded 06/05/24 13:49) Unknown Medication List - Last Reconciled 11/13/24 by Checo Guzman MD loratadine (Claritin RediTabs) 10 mg PO DAILY Tobacco use date assessed: 11/13/24 Dental Screening Dental Screen Date: 11/13/24 Did you have a dental visit in the last 12 months?: Yes Did you have a dental problem in the last 6 months where you did not have access to dental care?: No Was dental information given to patient?: Patient has dentist HPI Labs F/U HPI Details hyperlipidemia not on rx PFSH Medical History Coccydynia Left ear pain Physical exam Surgical History Daisy teeth removed Status post right foot surgery H/O prior ablation treatment Family History Mother Stroke Social History Housing: House Alcohol intake: current Alcohol intake frequency: other Alcohol type: wine Patient Tobacco Use Status: Never used Tobacco Tobacco use type: Cigarette e-Cigarette/Vaping Use: Never Used Second Hand Smoke Exposure: No service: No Current occupational status: employed Gender identity: Female Cognitive needs: No Hearing needs: No Vision needs: No Female Reproductive History Menstrual Age of Menarche: 10 Questionnaire PHQ-9 Over the last 2 weeks, how often have you been bothered by any of the following problems? 1. Little interest or pleasure in doing things: not at all 2. Feeling down, depressed, or hopeless: not at all 3. Trouble falling or staying asleep, or sleeping too much: not at all 4. Feeling tired or having little energy: not at all 5. Poor appetite or overeating: not at all 6. Feeling bad about yourself - or that you are a failure or have let yourself or your family down: not at all 7. Trouble concentrating on things, such as reading the newspaper or watching television: not at all 8. Moving or speaking so slowly that other people could have noticed. Or the opposite - being so fidgety or restless that you have been moving around a lot more than usual: not at all 9. Thoughts that you would be better off or of hurting yourself in some way: not at all Total score: 0 Depression Screening Interpretation: Negative Depression Screening Done: Yes Source: Developed by Drs. Harley Jimenez, Erika Núñez, Jose Francisco Garcia and colleagues, with an educational jong from [facility]. Thrive Questionnaire Date Thrive assessed: 11/13/24 I am a: Patient What is your living situation today?: I have a steady place to live Within the past 12 months, did the food you bought not last and you didn't have the money to get more?: Never true Within the past 12 months, did you worry whether your food would run out before you got money to buy more?: Never true Do you have trouble paying for medicines?: No Do you have trouble getting transportation to medical appointments?: No Do you have trouble paying your heating and electricity bill?: No Do you have trouble taking care of your child, family member or friend?: No Do you have trouble with day-to-day activities such as bathing, preparing meals, shopping, managing finances, etc.?: No Are you currently unemployed and looking for a job?: No Are you interested in more education?: No Please select the resources that you would like help with: None Currently or been in a relationship where the following occur: No concerns reported THRIVE Score: 0 AUDIT C Alcohol Use Questionnaire (AUDIT-C) 1. How often do you have a drink containing alcohol?: Never Total Score: 0 MACHO-7 AMB Questionnaire MACHO-7 Date MACHO - 7 assessed: 11/13/24 Feeling nervous, anxious, or on edge: 0 = Not at all Not being able to stop or control worryin = Not at all Worrying too much about different things: 0 = Not at all Trouble relaxin = Not at all Being so restless that it is hard to sit still: 0 = Not at all Becoming easily annoyed or irritable: 0 = Not at all Feeling afraid as if something awful might happen: 0 = Not at all Total MACHO-7 score (0-4 normal; 5-9 mild; 10-14 moderate; 15-21 severe): 0 Source: Developed by Drs. Harley Jimenez, Erika Núñez, Jose Francisco Garcia and colleagues, with an educational jong from [facility]. Review of Systems Const Denies chills, Denies headache(s) and Denies weight loss ENT Denies headache(s) Card Denies chest pain, Denies syncope, Denies irregular heart rhythm and Denies dyspnea Resp Denies chest congestion, Denies cough and Denies dyspnea GI Denies abdominal pain, Denies change in stool character, Denies nausea and Denies vomiting Musc Denies deformity and Denies joint swelling Neuro Denies syncope and Denies headache(s) Physical exam (Primary Care) Vital Signs: Last Vital Signs Pulse 80 11/13/24 10:34 BP 122/80 11/13/24 10:34 Pulse Ox 96 11/13/24 10:34 Oxygen Delivery Method Room Air 11/13/24 10:34 BMI result Body Mass Index 26.1 Tobacco/Smoking Status: Tobacco use Status Tobacco use date assessed 11/13/24 11/13/24 10:39 Patient Tobacco Use Status Never used Tobacco 11/13/24 10:39 Tobacco use type Cigarette 11/13/24 10:39 e-Cigarette/Vaping Use Never Used 11/13/24 10:39 PHQ-9: PHQ-9 Score PHQ-9: Total score 0 11/13/24 10:39 Depression Screening Interpretation: Negative Thrive Assessment: Date of Thrive Assessment Date Thrive assessed 11/13/24 11/13/24 10:39 Currently or been in a relationship where the following occur: No concerns reported Const General: cooperative, comfortable, no acute distress and alert Neck Neck: Yes no lymphadenopathy Thyroid: Thyroid normal Resp Effort & Inspection: normal respiratory effort Auscultation: clear to auscultation bilaterally Percussion: percussion normal Cardio Jugular venous distension: no JVD Palpation: normal PMI Rate: regular rate Rhythm: regular rhythm Heart sounds: S1 normal heart sound present and S2 normal heart sound present GI Inspection: Yes normal to inspection Palpation (GI): No hepatosplenomegaly present Skin General skin exam: no rashes or lesions noted Extrem General: Yes no clubbing, cyanosis or edema Coding Level of Care Code Est Pt Level 3 (21760) Diagnoses Hyperlipidemia E78.5 Assessment & Plan Assessment & Plan (1) Hyperlipidemia: Code(s): E78.5 - Hyperlipidemia, unspecified Category: Medical Plan: begin rx Orders: Referrals Allergy & Immunology Referral K14.0 - Glossitis Medications: New atorvastatin 20 mg PO DAILY 30 tabs 2RF
[2024-11-13 10:34] VITALS: BP 122/80; PULSE 80; O2SAT 96; BMI 26.1
--- OUTSIDE RECORDS SUMMARY | 2024-11-13 14:57 | XMS_ITS | Data Portability ---
Author Organization [facility] Address [address] [place] [address] Assessment No assessment recorded. Plan of Treatment Reminders Order Date Submit Date Provider Last Modified By Organization Details Last Modified Time Details Appointments None recorded. Lab culture, urine 2023 024 [place] [facility] ([facility], [address] [place] [address], [place], [address], 4 18:06:02 urinalysis, dipstick 2023 024 [place] [address] [facility], [address] [place], [address], 4 20:25:10 Referral None recorded. Procedures None recorded. Surgeries None recorded. Imaging None recorded. Medication Orders Pyridium 200 mg tablet 2023 024 [id number], [address] [place], [address], 4 20:25:09 sulfamethox azole 800 mg-trimetho prim 160 mg tablet 2023 024 [facility][id number], [address] [place], [address], 4 20:25:10 Diflucan 150 mg tablet 2023 024 [id number], [address] [place], [address], 20:25:10 Patient TargetsNo targets recorded. Patient Instructions Encounter Date Encounter Id Patient Instructions Last Modified By Organization Details Last Modified Time 02/08/2024 [id number] painful urinatio n (dysuria): care instructions dallasm2 [...] routine FINAL REPORT abnormal Not Available [facility] ([facility]) [address] [facility] [address], [place], [address], 02/11/2024 12:06:14 02/08/2002/11/2024 URINE CULTU REARISTEO NE [...] ng units per mL Not Available [facility] ([facility]) [address] [facility] [address], [place], [address], 02/11/2024 12:06:14 02/08/20 24 02/11/2024 URINE CULTU [...] thopr im/Lux lfa S Not Available [facility] ([facility]) [address] [facility] [address], [place], [address], 02/11/2024 12:06:14 02/08/20 24 02/08/2024 urina lysis , dipst ick Unknown Analyte Normal = light yellow Not Available [facility] [address] [place] [address], [address], 02/08/2024 18:21:26 02/08/20 24 02/08/2024 urina lysis , dipst ick Unknown Analyte Light Yellow Not Available [facility] [address] [place] [address], [address], 02/08/2024 18:21:26 02/08/20 24 02/08/2024 urina lysis , dipst ick Unknown Analyte Normal = clear Not Available [facility] [address] [place] [address], [address], 02/08/2024 18:21:26 02/08/20 24 02/08/2024 urina lysis , dipst ick Unknown Analyte Clear Not Available [facility] [address] [place] [address], [address], 02/08/2024 18:21:26 02/08/20 24 02/08/2024 urina lysis , dipst ick Unknown Analyte Normal = negati ve Not Available [facility] [address] [place] [address], [address], 02/08/2024 18:21:26 02/08/20 24 02/08/2024 urina lysis , dipst ick Unknown Analyte Negati ve Not Available [facility] [address] [place] [address], [address], 02/08/2024 18:21:26 02/08/20 24 02/08/2024 urina lysis , dipst ick Unknown Analyte Normal = Negati ve Not Available [facility] [address] [place] [address], [address], 02/08/2024 18:21:26 02/08/20 24 02/08/2024 urina lysis , dipst ick Unknown Analyte Negati ve Not Available [facility] [address] [place] [address], [address], 02/08/2024 18:21:26 02/08/20 24 02/08/2024 urina lysis , dipst ick Unknown Analyte Normal = Negati ve Not Available [facility] [address] [place] [address], [address], 02/08/2024 18:21:26 02/08/20 24 02/08/2024 urina lysis , dipst ick Unknown Analyte Negati ve Not Available [facility] [address] [place] [address], [address], 02/08/2024 18:21:26 02/08/20 24 02/08/2024 urina lysis , dipst ick Unknown Analyte Normal = 1.010, 1.015, 1.020 Not Available [facility] [address] [place] [address], [address], 02/08/2024 18:21:26 02/08/20 24 02/08/2024 urina lysis , dipst ick Unknown Analyte 1.010 Not Available [address], [address], 02/08/2024 18:21:26 02/08/20 24 02/08/2024 urina lysis , dipst ick Unknown Analyte Normal = Negati ve Not Available [facility] ie [address], [address], 02/08/2024 18:21:26 02/08/20 24 02/08/2024 urina lysis , dipst ick Unknown Analyte Modera te Not Available [facility] ie [address], [address], 02/08/2024 18:21:26 02/08/20 24 02/08/2024 urina lysis , dipst ick Unknown Analyte Normal = 6.5, 7.0, 7.5, 8.0 Not Available [facility] ie [address], [address], 02/08/2024 18:21:26 02/08/20 24 02/08/2024 urina lysis , dipst ick Unknown Analyte 7.0 Not Available [address], [address], 02/08/2024 18:21:26 02/08/20 24 02/08/2024 urina lysis , dipst ick Unknown Analyte Normal = Negati ve Not Available [facility] ie [address], [address], 02/08/2024 18:21:26 02/08/20 24 02/08/2024 urina lysis , dipst ick Unknown Analyte Negati ve Not Available [facility] [address] [place] [address], [address], 02/08/2024 18:21:26 02/08/20 24 02/08/2024 urina lysis , dipst ick Unknown Analyte Normal = 0.2, 1.0 Not Available [facility] [address] [place] [address], [address], 02/08/2024 18:21:26 02/08/20 24 02/08/2024 urina lysis , dipst ick Unknown Analyte 0.2 E.U./d L Not Available [facility] [address] [place] [address], [address], 02/08/2024 18:21:26 02/08/20 24 02/08/2024 urina lysis , dipst ick Unknown Analyte Normal = Negati ve Not Available [facility] [address] [place] [address], [address], 02/08/2024 18:21:26 02/08/20 24 02/08/2024 urina lysis , dipst ick Unknown Analyte Negati ve Not Available [facility] [address] [place] [address], [address], 02/08/2024 18:21:26 02/08/20 24 02/08/2024 urina lysis , dipst ick Unknown Analyte Normal = Negati ve Not Available [facility] [address] [place] [address], [address], 02/08/2024 18:21:26 02/08/20 24 02/08/2024 urina lysis , dipst ick Unknown Analyte Small Not Available [facility] [address] [place] [address], [address], 02/08/2024 18:21:26 Result Notes None recorded. Problems No Known Problems Medical Equipment None Reported. Allergies Allergen ID Allergen Name Allergen Category Reaction Reaction Severity Criticality Documentation Date Start Date Code Code System Note Provider Name and Address Organization Details Recorded Time [id number] amoxicill in medicatio n Not available Not available Not available 02/08/2024 723 RxNorm ROSANA ELIZABETHO null, [place] - [facility] 18:18:43 646089 Product containin g penicilli n and antibioti c (product) medicatio n Not available Not available Not available 02/08/2024 10596 05 SNOMED ROSANA MINEO null, PA - [facility] 18:18:48 177049 Product containin g quinolone and antibioti c (product) medicatio n Not available Not available Not available 02/08/2024 22015 008 SNOMED ROSANA MINEO null, PA - [facility] 18:18:59 [id number] Avelox medicatio n Not available Not available Not available 02/08/2024 08557 6 RxNorm ROSANA MINEO null, PA - [...] Details Last Updated DateTime 02/08/2024 25.1 kg/m2 68255.49 g ROSANA ROSE PA - [facility] [...] SNOMED-CT Code Diagnosis ICD10 Code Diagnosis Note [id number] [address] [address] 09/03/2016 16:21:02 09/03/2016 17:29:30 [id number] [facility] [address] [place] [address] 12/01/2017 18:18:11 12/01/2017 19:53:14 [id number] [facility] [address] 03/12/2022 16:12:59 03/12/2022 17:22:15 [id number] Lubna Dietrich MD [facility] [address] [place] [address] 02/08/2024 18:09:40 02/08/2024 20:26:14 Acute urinary tract infection 811425652 N39.0 .TA-UTI_Ma le-D/C Dysuria 46356369 R30.0 Health Concerns Section Related Observation LastModified by Organization Detai ls LastModified Time None Recorded Concern Status LastModified by Organization Details LastModified Time None Recorded Advance Directives Directive None Recorded Payers Encounter Date Sequence Insurance Name Policy Number Policy Mares Covered Member ID Mares Member ID Guarantor Name 09/03/2016 1 [employer]) [id number] Errol Montenegro [id number] Candi Montenegro 12/01/2017 1 [employer] [id number] Errol Montenegro [id number] Candi Grimm Doktsergio 02/08/2024 1 [employer]) [id number] Errol SelStorpa [id number] Candi Montenegro Notes Date Note Type Note Provider Name and Address Organization Details Recorded Time text/html Urinary Complaint FemaleReported bypatient.source of patient informationInformation obtained from patient UTI Symptoms:no blood in the urine; no fever/chills;urgency;urinar y frequency Severity:moderate Duration:started ; 2 days Modifying Factors:nothing gives relief; No other complaints Lubna Dietrich MD [address] [place], [place] [address], [address], [place] - [facility] 02/16/2024 20:32:53 OBGyn Episode No OBEpisode recorded.
== END 2024-11-13 11:11 | disposition home or self-care (01) ==
PROVIDERS: PCP Internal Medicine; Visit Provider Internal Medicine
DX: E78.5 Hyperlipidemia, unspecified (principal)

== ENCOUNTER 2024-12-13 07:57 | Outpatient (AMB) | payer BC, OTHER, SELFPAY ==
--- OUTSIDE RECORDS SUMMARY | 2024-12-13 08:03 | XMS_ITS | Patient Health Record ---
Author Organization [facility] Address [address] [facility] [place] [address] Care Team Providers Care Medical Clinic Manager Name Role Phone Megan MARTINEZ, [place] Primary Care Provider Joshua Scanlon Unavailable [phone] Allergies Allergen (clinical drug ingredient) Drug/Non Drug [...] Status Risk Notes Problem Acquired hallux valgus (17786421) Hallux valgus (acquired), left foot (M20.12) Active confirmed Problem Acquired hallux valgus (92637174) Hallux valgus (acquired), right foot (M20.11) Active confirmed Plan Of Treatment Pending Test Test Name Order Date X ray : Foot, left 3V 03/22/2023 X ray : Foot, right 3V 03/22/2023 Insurance Providers Payer Name Payer Address Payer Phone Subscriber Number Group Number Insured Name Patient Relationship to Insured Coverage Start Date Coverage End Date [facility] [address] [facility] [place] [address] [id number] Errol Montenegro Spouse - patient is the spouse of the insured [facility] [address] [place] [address] [phone] [id number] Candi Montenegro Self - patient is the insured Medical (General) History Medical History History ICD Code osteoarthritis Knee Pain Chicken pox Broken Thumb Acupuncture for Left Knee Arthritis Surgical History Surgery Date(Month/Year) Uterine ablation 11/2015 Bone removal, 2 Toes of Right Foot 02/04 18
[2024-12-13 08:04] VITALS: BP 128/78; PULSE 90; RESP 16; TEMP 36.6; O2SAT 99; BMI 26.3
--- NOTE | 2024-12-13 08:04 | MHC.OFFWIV ---
Intake Vital Signs 12/13/24 08:04 Height 5 ft 4 in Weight 153 lb BMI 26.3 BP 128/78 Blood Pressure Location Lt brachial Position Sitting Respiration 16 Pulse 90 Pulse Source Pulse Oximeter Temp 97.9 F Temp Source Oral Pulse Oximetry (%) 99 Oxygen Delivery Method Room Air Intake Visit Reasons: EP UTI? Hives on arm Intake Note: Pt is here today c/o ?UTI also hives on arm Patient Tobacco Use Status: Never used Tobacco Allergies amoxicillin [AMOXICILLIN] Allergy (Unknown, Verified 12/13/24 08:12) RASH-HIVES, rash moxifloxacin [From AVELOX] Allergy (Unknown, Verified 12/13/24 08:12) RASH-HIVES penicillin G Allergy (Unknown, Verified 12/13/24 08:12) Unknown Quinolones [QUINOLONES] Allergy (Unknown, Verified 12/13/24 08:12) RASH-HIVES Quinolone Allergy (Unknown, Uncoded 12/13/24 08:12) hives Quinosone Allergy (Unknown, Uncoded 12/13/24 08:12) Unknown HPI HPI Comments History of Present Illness Details Pagtient is a 54yo F who presents with 2 complaint First + lipitor complaint Has been on x 1 month and feels diarrhea and brain fogginess No headaches, visual changes, confusion Sometimes has word finding difficulty No weakness, numbness or tingling No CP or SOB States causes diarrhea and has made her prone to UTIs Last infection in September Has not called PCP about this States also UTI symptoms since yesterday Has had dysuria frequency and urgency No back pain or abdominal pain No fever or chills No medicine taken for symptoms She also noticed hives to arms and ankles this am Has not taken anythign for it No new medicines Hss resolved on its own No throat tightness or difficulty swallowing PFSH Medical History Coccydynia Left ear pain Physical exam Surgical History [place] teeth removed Status post right foot surgery H/O prior ablation treatment Family History Mother Stroke Social History Housing: House Alcohol intake: current Alcohol intake frequency: other Alcohol type: wine Patient Tobacco Use Status: Never used Tobacco Tobacco use type: Cigarette e-Cigarette/Vaping Use: Never Used Second Hand Smoke Exposure: No service: No Current occupational status: employed Gender identity: Female Cognitive needs: No Hearing needs: No Vision needs: No Female Reproductive History Menstrual Age of Menarche: 10 Review of Systems Const Denies chills, Denies fever(s), Denies frequent falls and Denies headache(s) Eyes Denies change in vision ENT Denies dizziness and Denies headache(s) Card Denies chest pain, Denies syncope and Denies dyspnea Resp Denies cough and Denies dyspnea GI Denies abdominal pain, Denies constipation, Denies GI cramping, Reports diarrhea, Denies nausea and Denies vomiting Reports hematuria, Reports dysuria, Denies urinary incontinence and Reports urinary urgency Musc Denies back pain and Denies tingling Skin/Breast Reports rash Neuro Denies dizziness, Denies syncope, Denies frequent falls, Denies headache(s), Denies tingling and Denies paresthesias Physical Exam Vital Signs: Last Vital Signs Temp 97.9 F 12/13/24 08:04 Pulse 90 12/13/24 08:04 Resp 16 12/13/24 08:04 BP 128/78 12/13/24 08:04 Pulse Ox 99 12/13/24 08:04 Oxygen Delivery Method Room Air 12/13/24 08:04 BMI result Body Mass Index 26.3 General: Non-toxic, NAD. Speaking full sentences. Skin: Warm dry throughout. There is 3 small circular slightly raised non-tender approx 1cm x 0.5cm lesios to arms consistent with hives. None to neck face back or abdomen Eye: PERRL, EOMI HENT: Airway patent. Uvula midline. No pharyngeal erythema or edema. 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 Bilateral canals clear. TM non-erythematous, non-bulging. No TM perforation or hemotympanum noted. Respiratory: CTA bilaterally. No wheezes, rales or rhonchi Cardiac: RRR. No murmur Abdominal: BS present. Non-tender throughout. No palpable masses. No abdominal distention or pusatile mass. MSK: Full ROM extremities. Neurology: A/O x 3. CN 2-12 grossly intact. No aphasia or facial droop. Gait without abnormality Psych: Good mood and affect Results AMB Urinalysis, Automated UA Leukoctes 500 Faby/uL Last Edit by Steph Fields CMA on 12/13/24 08:18 UA Nitrite Negative Last Edit by Steph Fields CMA on 12/13/24 08:18 UA Urobilinogen 0.2 mg/dL Last Edit by Steph Fields CMA on 12/13/24 08:18 UA Protein 15 mg/dL Last Edit by Steph Fields CMA on 12/13/24 08:18 UA pH 6.0 Last Edit by Steph Fields CMA on 12/13/24 08:18 UA Blood 200 Iggy/uL Last Edit by Steph Fields CMA on 12/13/24 08:18 UA Specific Jackson 1.030 Last Edit by Steph Fields CMA on 12/13/24 08:18 UA Ketone Negative Last Edit by Steph Fields CMA on 12/13/24 08:18 UA Bilirubin 0 mg/dL Last Edit by Steph Fields CMA on 12/13/24 08:18 UA Glucose 0 mg/dL Last Edit by Steph Fields CMA on 12/13/24 08:18 Results Reviewed Results Reviewed: Laboratory Last Values Urine pH (Auto) 6.0 12/13/24 08:17 Specific Jackson (Auto) 1.030 12/13/24 08:17 Urine Protein (Auto) 15 mg/dL 12/13/24 08:17 Glucose (UA)(Auto) 0 mg/dL 12/13/24 08:17 Urine Ketones (Auto) Negative 12/13/24 08:17 Urine Blood (Auto) 200 Igyg/uL 12/13/24 08:17 Urine Nitrite (Auto) Negative 12/13/24 08:17 Urine Bilirubin (Auto) 0 mg/dL 12/13/24 08:17 Urine Urobilinogen (Auto) 0.2 mg/dL 12/13/24 08:17 Leukocyte Esterase (Auto) 500 Faby/uL 12/13/24 08:17 Assessment & Plan Assessment & Plan (1) Urinary tract infection: Code(s): N39.0 - Urinary tract infection, site not specified Qualifiers: Urinary tract infection type: acute cystitis Hematuria presence: with hematuria Qualified Code(s): N30.01 - Acute cystitis with hematuria Plan: Bactrim; previous culture sensitive to this Increase fluids OTC Azo if needed (2) Brain fog: Code(s): R41.89 - Other symptoms and signs involving cognitive functions and awareness Plan: Pt concerned due to lipitor No neuro deficit on exam I said okay to d/c medicine Note sent to her PCP for close follow up Call office with concerns Orders: Orders AMB Urinalysis Automated Today Z13.9 - Encounter for screening, unspecified Medications: New sulfamethoxazole-trimethoprim 800-160 mg (Bactrim DS) 1 tab PO BID 20 tabs 0RF Coding Level of Care Code Est Pt Level 4 (83853) Diagnoses Acute cystitis with hematuria N30.01 Urinary tract infection type: acute cystitis Hematuria presence: with hematuria Brain fog R41.89
--- OUTSIDE RECORDS SUMMARY | 2024-12-13 08:04 | XMS_ITS ---
Author Organization [facility] Address [address] [place] [address] Care Team Providers Care Candlemaker Name Role Phone Checo Guzman MD Primary Care Provider UnavailJimmy Westbrook Jr Unavailable ALLERGIES Allergen (clinical drug ingredient) Drug/Non Drug Allergy documented on EMR Reaction Allergy Type Onset Date Status Penicillin Unknown Drug Allergy Active moxifloxacin Avelox Unknown Drug Allergy Acti ve amoxicillin Amoxicillin Unknown Drug Allergy Act amarilys quinolones-allergy m ed (uncoded) Unknown Allergy Active REASON FOR VISIT patient presents today for yeast infection in colon MEDICATIONS Medication SIG (Take, Route, Frequency, Duration) Notes Start Date End Date Status Flaxseed Oil 1000 MG as directed Orally once a day Active Osteo Bi-Flex Regular Strength 250-200 MG 1 tablet with a meal Orally Once a day Active Claritin 10 MG 1 tablet Orally Once a day for 30 day(s) Active Align 4 MG as directed Orally Active SOCIAL HISTORY Tobacco Use: Social History Observation Description Date Details (start date - stop date) Never Smoker NA - NA Sex Assigned At : Social History Observation Description Sex Assigned At Unknown Tobacco Use/Smoking Question Answer Notes Patient is a nonsmoker Alcohol Screen Question Answer Notes Did you have a drink contain ing alcohol in the past year? Yes How often did you have a dri nk containing alcohol in the past year? 2 to 4 times a month (2 points) How many drinks did you have on a typical day when you were drinking in the past year? 1 or 2 drinks (0 point) How often did you have 6 or more drinks on one occasion in the past year? Never (0 point) Points 2 Interpretation Negative PROBLEMS Problem Type ICD Code Onset Dates Problem Status W/U Status Risk SNOMED Code Notes Problem Coccydynia (M53.3) Active confirmed 87953484 Problem Perianal dermatitis (L30.9) Active confirmed [id number] VITAL SIGNS Temperature 97.3 degrees Fahrenheit 10/21/19 24 Blood pressure systolic 00 mm Hg 10/21/19 24 Blood pressure diastolic 00 mm Hg 024 Height 64 in 10/21/2023 Weight 142 lbs 10/21/2023 BMI 24.37 kg/m2 10/21/2023 Encounters Encounter Location Date Provider Diagnosis [facility] [address] [place] [address] 10/21/2023 Jimmy Hunter Jr Colon cancer screening Z12.11 ; Coccydynia M53.3 and Perianal dermatitis L30.9 ASSESSMENTS Encounter Date Diagnosis Assessment Notes Treatment Notes Treatment Clinical Notes 10/21/2023 Colon cancer screening (ICD-10 - Z12.11) 10/21/2023 Coccydynia (ICD-10 - M53.3) Abdominal pain material was printed 10/21/2023 Perianal dermatitis (ICD-10 - L30.9) PLAN OF TREATMENT Treatment Notes Assessment Notes Coccydynia Abdominal pain mater ial was printed Next Appt Details Follow Up: 1 Year, prn, Reas on: Progress Notes * Examination Category Sub-Category Detail Notes General Examination GENERAL APPEARANCE: in no ac [place] distress HEAD: normocephalic EYES: sclera non-icteric NECK/THYROID: no lymphadenopathy HEART: S1, S2 normal, no mu rmurs CHEST: normal shape and exp ansion LUNGS: clear to auscultatio n bilaterally ABDOMEN: soft, nontender, non distended, bowel sounds present, no organomegaly SKIN: anicteric EXTREMITIES: no clubbing, cyanosi s, or edema PSYCH: cognitive function i ntact ORAL CAVITY: mucosa moist
--- OUTSIDE RECORDS SUMMARY | 2024-12-13 08:04 | XMS_ITS | Patient Health Record ---
Author Organization [facility] Address [address] [place] [address] Care Team Providers Care Compliance Project Manager Name Role Phone Checo Guzman MD Primary Care Provider Jimmy Dunlap Jr Unavailable ALLERGIES Allergen (clinical drug ingredient) Drug/Non Drug Allergy documented on EMR Reaction Allergy Type Onset Date Status Penicillin Unknown Drug Allergy Active moxifloxacin Avelox Unknown Drug Allergy Acti ve amoxicillin Amoxicillin Unknown Drug Allergy Act amarilys quinolones-allergy m ed (uncoded) Unknown Allergy Active REASON FOR REFERRAL No Information MEDICATIONS Medication SIG (Take, Route, Frequency, Duration) Notes Start Date End Date Status Flaxseed Oil 1000 MG as directed Orally once a day Active Osteo Bi-Flex Regular Strength 250-200 MG 1 tablet with a meal Orally Once a day Active Claritin 10 MG 1 tablet Orally Once a day for 30 day(s) Active Align 4 MG as directed Orally Active IMMUNIZATIONS Vaccine Route Administration Date Status Comme nts Influenza Unknown 12/02/2018 Refused SOCIAL HISTORY Tobacco Use: Social History Observation [...] W/U Status Risk SNOMED Code Notes Problem Colon cancer screening (Z12.11) Active confirmed 214573596 Problem Encounter for other preprocedural examination (Z01.818) Active confirmed 38913634 Problem Long-term use of aspirin therapy (Z79.82) Active confirmed 767473672 Problem Coccydynia (M53.3) Active confirmed 347 08970 Problem Perianal dermatitis (L30.9) Active confirmed 447260973 PLAN OF TREATMENT Future Test Test Name Order Date COLONOSCOPY 12/02/2018 Insurance Providers Payer Name Payer Address Payer Phone Subscriber Number Group Number Insured Name Patient Relationship to Insured Coverage Start Date Coverage End Date [employer] [address] [place] [phone] [id number] MARI BUTLER Self - patient is the insured MEDICAL (GENERAL) HISTORY Medical History History ICD Code Screening colonoscopy 04/05, normal, ten- year followup Surgical History Surgery Date(Month/Year) uterine ablation x 2 2015 right foot surgery 01/2018
== END 2024-12-13 08:37 | disposition home or self-care (01) ==
PROVIDERS: PCP Internal Medicine; Visit Provider Physician Assistant
DX: N30.01 Acute cystitis with hematuria (principal); R41.89 Other symptoms and signs involving cognitive functions and awareness; Z13.9 Encounter for screening, unspecified

== ENCOUNTER → 2024-12-13 07:57 | Outpatient (BNVA) | payer BC, OTHER, SELFPAY | PROVIDERS: PCP Internal Medicine | DX: N30.01 Acute cystitis with hematuria (principal); R41.89 Other symptoms and signs involving cognitive functions and awareness | CPT/HCPCS: 81003 ==

== ENCOUNTER 2025-02-08 08:58 | Outpatient (REF) | payer OTHER, BC, SELFPAY ==
--- NOTE | ~2025-02-08 | US_ITS ---
CLINICAL HISTORY: R79.89 - Other specified abnormal findings of blood chemistry --- Additional Notes or Special Instructions: Elevated LFTs US abdomen complete with duplex and color Doppler Comparison: None Findings: The visualized pancreas, aorta, and inferior vena cava are unremarkable. Liver normal size and echotexture. Right lobe 11.8 cm length. Well-circumscribed echogenic lesion right lobe measuring 1.4 x 1.2 x 1.2 cm. Common duct 5.3 mm diameter. Physiologic distention of the gallbladder. No gallstones or sludge. No gallbladder wall thickening. No pericholecystic fluid. No sonographic Sharma sign. Main portal vein antegrade. Right kidney normal size, 9.6 cm in length. Normal cortical width and echotexture. No solid or cystic renal masses. No nephrolithiasis or hydronephrosis. Left kidney normal, 10.0 cm in length. Normal cortical width and echotexture. No solid or cystic renal masses. No nephrolithiasis or hydronephrosis. Spleen measures 10.0 cm. No splenic masses. No ascites. No lymphadenopathy. Impression: 1. Echogenic lesion right lobe of the liver probable hemangioma multiphase MRI of the abdomen with contrast is the imaging modality of choice for confirmation. This document has been electronically signed by: Cj Julio MD on 02/09/2025 11:25:02
--- OUTSIDE RECORDS SUMMARY | 2025-02-08 09:39 | XMS_ITS | Patient Health Record ---
Author Organization [facility] Address [address] [place] [address] Care Team Providers Care Broadband Technician Name Role Phone Megan MARTINEZ, Checo Primary Care Provider Joshua Scanlon Unavailable [phone] Allergies Allergen (clinical drug ingredient) Drug/Non Drug [...] Status Risk Notes Problem Acquired hallux valgus (08637895) Hallux valgus (acquired), left foot (M20.12) Active confirmed Problem Acquired hallux valgus (28045757) Hallux valgus (acquired), right foot (M20.11) Active confirmed Plan Of Treatment Pending Test Test Name Order Date X ray : Foot, left 3V 03/22/2023 X ray : Foot, right 3V 03/22/2023 Insurance Providers Payer Name Payer Address Payer Phone Subscriber Number Group Number Insured Name Patient Relationship to Insured Coverage Start Date Coverage End Date [facility] [address] [place] [address] [id number] Errol Montenegro Spouse - patient is the spouse of the insured [facility] [address] [place] [address] [id number] Candi Montenegro Self - patient is the insured Medical (General) History Medical History History ICD Code osteoarthritis Knee Pain Chicken pox Broken Thumb Acupuncture for Left Knee Arthritis Surgical History Surgery Date(Month/Year) Uterine ablation 11/2015 Bone removal, 2 Toes of Right Foot 02/04 18
--- OUTSIDE RECORDS SUMMARY | 2025-02-08 09:39 | XMS_ITS | Patient Health Record ---
Author Organization [facility] Address [address] [place] [address] Care Team Providers Care Embedded Case Manager Name Role Phone Checo Guzman MD Primary Care Provider Jimmy Dunlap Jr Unavailable Allergies Allergen (clinical drug ingredient) Drug/Non Drug Allergy documented on EMR Reaction Allergy Type Onset Date Status Penicillin Unknown Drug Allergy Active moxifloxacin Avelox Unknown Drug Allergy Acti ve amoxicillin Amoxicillin Unknown Drug Allergy Act amarilys quinolones-allergy m ed (uncoded) Unknown Allergy Active Reason For Referral No Information [...] Align 4 MG as directed Orally Active Immunizations Vaccine Route Administration Date Status Comme nts Influenza Unknown 12/02/2018 Refused Social History Tobacco Use: Social History Observation Description Date Details (start date - stop date) Never Smoker NA - NA Tobacco Use/Smoking Question Answer Notes Patient is [...] Never (0 point) Points 2 Interpretation Negative Problems Problem Type SNOMED Code ICD Code Onset Dates Problem Status W/U Status Risk Notes Problem [id number] Colon cancer screening (Z12.11) Active confirmed Problem 05855631 Encounter for other preprocedural examination (Z01.818) Active confirmed Problem 685175931 Long-term use of aspirin therapy (Z79.82) Active confirmed Problem 08001680 Coccydynia (M53.3) Active confirmed Problem 588040189 Perianal dermatitis (L30.9) Active confirmed Plan Of Treatment Future Test Test Name Order Date COLONOSCOPY 12/02/2018 Insurance Providers Payer Name Payer Address Payer Phone Subscriber Number Group Number Insured Name Patient Relationship to Insured Coverage Start Date Coverage End Date [employer] [address] [facility] [place] [address] [id number] MARI BUTLER Self - patient is the insured Medical (General) History Medical History History ICD Code Screening colonoscopy 04/05, normal, ten- year followup Surgical History Surgery Date(Month/Year) uterine ablation x 2 2015 right foot surgery 01/2018
--- OUTSIDE RECORDS SUMMARY | 2025-02-08 09:39 | XMS_ITS | Data Portability ---
Author Organization [facility] Address [address] [place] [phone] Assessment No assessment recorded. Plan of Treatment Reminders Order Date Submit Date Provider Last Modified By Organization Details Last Modified Time Details Appointments None recorded. Lab culture, urine 2023 024 [place] [facility] ([facility], [address] [place] [address], [place], [address], 4 18:06:02 urinalysis, dipstick 2023 024 [place] [address] _[facility], [address] [place], [address], 4 20:25:10 Referral None recorded. Procedures None recorded. Surgeries None recorded. Imaging None recorded. Medication Orders Pyridium 200 mg tablet 2023 024 [facility] #[id number], [address] [place], [address], 4 20:25:09 sulfamethox azole 800 mg-trimetho prim 160 mg tablet 2023 024 [facility] #[id number], [address] [place], [address], 4 20:25:10 Diflucan 150 mg tablet 2023 024 [facility] #[id number], [address] [place], [address], 20:25:10 Patient TargetsNo targets recorded. Patient Instructions Encounter Date Encounter Id Patient Instructions Last Modified By Organization Details Last Modified Time 02/08/2024 [id number] painful urinatio n (dysuria): care instructions dallasm2 [...] routine FINAL REPORT abnormal Not Available [facility] ([facility]) [address] [facility], [place], [address], 02/11/2024 12:06:14 02/08/2002/11/2024 URINE CULTU REARISTEO NE [...] ng units per mL Not Available [facility] ([facility]) [address] [facility], [place], [address], 02/11/2024 12:06:14 02/08/20 24 02/11/2024 URINE CULTU [...] thopr im/Lux lfa S Not Available [facility] ([facility]) [address] [facility], [place], [address], 02/11/2024 12:06:14 02/08/20 24 02/08/2024 urina lysis , dipst ick Unknown Analyte Normal = light yellow Not Available [facility] [address] [place] [address], [address], 02/08/2024 18:21:26 02/08/20 24 02/08/2024 urina lysis , dipst ick Unknown Analyte Light Yellow Not Available [email or web address] [address] [place] [address], [address], 02/08/2024 18:21:26 02/08/20 24 02/08/2024 urina lysis , dipst ick Unknown Analyte Normal = clear Not Available [facility] [[email or web address] [address] [place] [address], [address], 02/08/2024 18:21:26 02/08/20 24 02/08/2024 urina lysis , dipst ick Unknown Analyte Clear Not Available [facility] [address] [place] [address], [address], 02/08/2024 18:21:26 02/08/20 24 02/08/2024 urina lysis , dipst ick Unknown Analyte Normal = negati ve Not Available [facility] [[email or web address]] [facility] [address] [place] [address], [address], 02/08/2024 18:21:26 02/08/20 24 02/08/2024 urina lysis , dipst ick Unknown Analyte Negati ve Not Available [facility] [[email or web address]] [facility] [address] [place] [address], [address], 02/08/2024 18:21:26 02/08/20 24 02/08/2024 urina lysis , dipst ick Unknown Analyte Normal = Negati ve Not Available [email or web address] [address] [place] [address], [address], 02/08/2024 18:21:26 02/08/20 24 02/08/2024 urina lysis , dipst ick Unknown Analyte Negati ve Not Available [facility] [[email or web address]] [facility] [address] [place] [address], [address], 02/08/2024 18:21:26 02/08/20 24 02/08/2024 urina lysis , dipst ick Unknown Analyte Normal = Negati ve Not Available [facility] [[email or web address]] [facility] [address] [place] [address], [address], 02/08/2024 18:21:26 02/08/20 24 02/08/2024 urina lysis , dipst ick Unknown Analyte Negati ve Not Available [facility] [[email or web address] [address] [place] [address], [address], 02/08/2024 18:21:26 02/08/20 24 02/08/2024 urina lysis , dipst ick Unknown Analyte Normal = 1.010, 1.015, 1.020 Not Available [facility] [[email or web address]] [facility] [address] [place] [address], [address], 02/08/2024 18:21:26 02/08/20 24 02/08/2024 urina lysis , dipst ick Unknown Analyte 1.010 Not Available [address], [address], 02/08/2024 18:21:26 02/08/20 24 02/08/2024 urina lysis , dipst ick Unknown Analyte Normal = Negati ve Not Available [facility] [[email or web address]] ie [address], [address], 02/08/2024 18:21:26 02/08/20 24 02/08/2024 urina lysis , dipst ick Unknown Analyte Modera te Not Available [facility] [[email or web address]] ie [address], [address], 02/08/2024 18:21:26 02/08/20 24 02/08/2024 urina lysis , dipst ick Unknown Analyte Normal = 6.5, 7.0, 7.5, 8.0 Not Available [facility] [[email or web address]] ie [address], [address], 02/08/2024 18:21:26 02/08/20 24 02/08/2024 urina lysis , dipst ick Unknown Analyte 7.0 Not Available [address], [address], 02/08/2024 18:21:26 02/08/20 24 02/08/2024 urina lysis , dipst ick Unknown Analyte Normal = Negati ve Not Available [facility] [[email or web address]] ie [address], [address], 02/08/2024 18:21:26 02/08/20 24 02/08/2024 urina lysis , dipst ick Unknown Analyte Negati ve Not Available [facility] [[email or web address]] ie [facility] [address] [place] [address], [address], 02/08/2024 18:21:26 02/08/20 24 02/08/2024 urina lysis , dipst ick Unknown Analyte Normal = 0.2, 1.0 Not Available [facility] [[email or web address]] ie [facility] [address] [place] [address], [address], 02/08/2024 18:21:26 02/08/20 24 02/08/2024 urina lysis , dipst ick Unknown Analyte 0.2 E.U./d L Not Available [facility] [[email or web address]] ie [facility] [address] [place] [address], [address], 02/08/2024 18:21:26 02/08/20 24 02/08/2024 urina lysis , dipst ick Unknown Analyte Normal = Negati ve Not Available [facility] [[email or web address] [address] [place] [address], [address], 02/08/2024 18:21:26 02/08/20 24 02/08/2024 urina lysis , dipst ick Unknown Analyte Negati ve Not Available [facility] [[email or web address] [address] [place] [address], [address], 02/08/2024 18:21:26 02/08/20 24 02/08/2024 urina lysis , dipst ick Unknown Analyte Normal = Negati ve Not Available [facility] [[email or web address] [address] [place] [address], [address], 02/08/2024 18:21:26 02/08/20 24 02/08/2024 urina lysis , dipst ick Unknown Analyte Small Not Available [facility] [address] [place] [address], [address], 02/08/2024 18:21:26 Result Notes None recorded. Problems No Known Problems Medical Equipment None Reported. Allergies Allergen ID Allergen Name Allergen Category Reaction Reaction Severity Criticality Documentation Date Start Date Code Code System Note Provider Name and Address Organization Details Recorded Time 83191218 amoxicill in medicatio n Not available Not available Not available 02/08/2024 723 RxNorm ROSANA MINEO null, PA - [facility] 18:18:43 119612 Product containin g penicilli n (product) medicatio n Not available Not available Not available 02/08/2024 15920 8001 SNOMED ROSANA MINEO null, PA - [facility] 18:18:48 263817 Medicinal product containin g quinolone and acting as antibacte rial agent (product) medicatio n Not available Not available Not available 02/08/2024 11498 008 SNOMED ROSANA MINEO null, PA - [facility] 18:18:59 355697 Avelox medicatio n Not available Not available Not available 02/08/2024 81003 6 RxNorm ROSANA MINEO null, PA - [...] Not Available Vitals Date Recorded Body height Body mass index (BMI) Body weight Respiratory rate Body temperature Heart rate Oxygen saturation Oxygen saturation in Arterial blood by Pulse oximetry Systolic blood pressure Diastolic blood pressure Provider Name and Address Organization Details Last Updated DateTime 162.56 cm 25.1 kg/m2 43233.4 9 g 18 /min 98.1 [degF] 71 /min 99 % 99 % 128 mm[Hg] 85 mm[Hg] ROSANA ROSE PA - [facility] 18:21:19 Social History Question Answer Notes LastModified by Organizat ion Details LastModified Time Tobacco Smoking Status Never Smoker ROSANA ROSE juliann PA - [facility] 02/08/2024 18:19:54 What [...] SNOMED-CT Code Diagnosis ICD10 Code Diagnosis Note [id number] [address] [place] [address] 09/03/2016 16:21:02 09/03/2016 17:29:30 [id number] [address] [place] [address] 12/01/2017 18:18:11 12/01/2017 19:53:14 [id number] [address] [place] [address] 03/12/2022 16:12:59 03/12/2022 17:22:15 [id number] Lubna Dietrich MD [address] [place] [address] 02/08/2024 18:09:40 02/08/2024 20:26:14 Acute urinary tract infection 999472672 N39.0 .TA-UTI_Ma le-D/C Dysuria 28623441 R30.0 Health Concerns Section Related Observation LastModified by Organization Detai ls LastModified Time None Recorded Concern Status LastModified by Organization Details LastModified Time None Recorded Advance Directives Directive None Recorded Payers Encounter Date Sequence Insurance Name Policy Number Policy Mares Covered Member ID Mares Member ID Guarantor Name 09/03/2016 1 [employer]) [id number] Errol Mcid [id number] Candi Grimm Doktor 12/01/2017 1 [employer] [id number] Errol Mcor [id number] Candi Grimm Doktor 02/08/2024 1 [employer]) [id number] Errol Nugentktid [id number] Candi Grimm Doktor Notes Date Note Type Note Provider Name and Address Organization Details Recorded Time 4 text/html Urinary Complaint FemaleReported bypatient.source of patient informationInformation obtained from patient UTI Symptoms:no blood in the urine; no fever/chills;urgency;urinar y frequency Severity:moderate Duration:started ; 2 days Modifying Factors:nothing gives relief; No other complaints Lubna Dietrich MD [address] [place], [place] [address], [address], [place] - [facility] 02/16/2024 20:32:53 OBGyn Episode No OBEpisode recorded.
--- OUTSIDE RECORDS SUMMARY | 2025-02-08 09:39 | XMS_ITS ---
Author Organization [facility] Address [address] [place] [address] Care Team Providers Care Computer Support Specialist Instructor Name Role Phone Megan MARTINEZ, Che[place] Primary Care Provider UnavailJimmy Westbrook Jr Unavailable Allergies Allergen (clinical drug ingredient) Drug/Non Drug Allergy documented on EMR Reaction Allergy Type Onset Date Status Penicillin Unknown Drug Allergy Active moxifloxacin Avelox Unknown Drug Allergy Acti ve amoxicillin Amoxicillin Unknown Drug Allergy Act amarilys quinolones-allergy m ed (uncoded) Unknown Allergy Active REASON FOR VISIT patient presents today for yeast infection in colon Medications Medication SIG (Take, Route, Frequency, Duration) Notes Start Date End Date Status Flaxseed Oil 1000 MG as directed Orally once a day Active Osteo Bi-Flex Regular Strength 250-200 MG 1 tablet with a meal Orally Once a day Active Claritin 10 MG 1 tablet Orally Once a day for 30 day(s) Active Align 4 MG as directed Orally Active Social History Tobacco Use: Social History Observation [...] Problem Status W/U Status Risk Notes Problem 32065442 Coccydynia (M53.3) Active confirmed Problem 474317094 Perianal dermatitis (L30.9) Active confirmed Vital Signs Temperature 97.3 degrees Fahrenheit 10/21/19 24 Blood pressure systolic 00 mm Hg 10/21/19 24 Blood pressure diastolic 00 mm Hg 024 Height 64 in 10/21/2023 Weight 142 lbs 10/21/2023 BMI 24.37 kg/m2 10/21/2023 Encounters Encounter Location Date Provider Diagnosis [facility] [address] [place] [address] 10/21/2023 Jimmy Hunter Jr Colon cancer screening Z12.11 ; Coccydynia M53.3 and Perianal dermatitis L30.9 Assessments Encounter Date Diagnosis (ICD Code) Assessment Notes Treatment Notes Treatment Clinical Notes Section Notes 10/21/2023 Colon cancer screening (ICD-10 - Z12.11) We discussed the causes of rectal pain, perianal dermatitis, and coccydynia today. Her yeast infection has resolved, and was treated appropriately. No pathology was identified at the time of her evaluation with Dr. Blanca and MRI is pending. We recommended she follow through on this and let us know if there is any colonic pathology. We will arrange further evaluation pending these results. Followup p.r.n. 10/21/2023 Coccydynia (ICD-10 - M53.3) Abdominal pain material was printed We discussed the causes of rectal pain, perianal dermatitis, and coccydynia today. Her yeast infection has resolved, and was treated appropriately. No pathology was identified at the time of her evaluation with Dr. Blanca and MRI is pending. We recommended she follow through on this and let us know if there is any colonic pathology. We will arrange further evaluation pending these results. Followup p.r.n. 10/21/2023 Perianal dermatitis (ICD-10 - L30.9) We discussed the causes of rectal pain, perianal dermatitis, and coccydynia today. Her yeast infection has resolved, and was treated appropriately. No pathology was identified at the time of her evaluation with Dr. Blanca and MRI is pending. We recommended she follow through on this and let us know if there is any colonic pathology. We will arrange further evaluation pending these results. Followup p.r.n. Plan Of Treatment Treatment Notes Assessment Notes Coccydynia Abdominal pain mater ial was printed Next Appt Details Follow Up: 1 Year, Aster martin on: Progress Notes * MARI BUTLER ADOB: [birth year] (53 yo F)Acc No.[id number]:10/21/2023 Progress Notes Patient:?MARI BUTLER A Provider:?Jimmy Hunter MD :1970???Age:53 Y???Sex:Female D ate:10/21/2023 Address:[address] [place], [place] [address] Pcp:Checo Guzman MD Subjective: * Chief Complaints: * ???1. Patient presents today for yeast infection in colon. * HPI: ???New symptom(s):? Mari is a pleasant 53-year-old woman seen today in consultation at the request of her primary care provider. ?She was last seen in March of 2019 for screening colonoscopy. This was normal and ten-year followup was recommended. ?In August of 2023, she developed bronchitis and was treated with a Z- Mohsen. Following this she developed a yeast infection in the perianal area which was treated with clotrimazole for 2 weeks. The yeast infection improved, however she still had rectal discomfort. She developed a bladder infection with hematuria. Urinalysis was positive and she was treated with Bactrim for 5 days which she finished 2 days ago. ?Because of persistent rectal discomfort she was seen in consultation by Dr. Blanca. Plain films of the pelvis were normal. She underwent anoscopy and had no significant findings of hemorrhoids, fistulas or fissures. She did have coccyx pain and has had an MRI of the pelvis scheduled. She has had some relief with mvcy-pif-drvgxot ibuprofen. ?She reports bowel movements are fine without any diarrhea or rectal bleeding. She has been taking probiotics regularly. * ROS:?General/Constitutional:?Change in appetite?denies.?Fatigue?denies.?ENT:?Patient denies?difficulty swallowing.?Respiratory:?Patient denies?shortness of breath.?Cardiovascular:?Patient denies?chest pain.?Gastrointestinal:?Comments?See HPI for details.?Genitourinary:?Difficulty urinating?denies.?Incontinence?denies.?Musculoskeletal:?Patient denies?muscle aches.?Skin:?Patient denies?pruritis.?Neurologic:?Patient denies?low back pain.?Psychiatric:?Patient denies?mental or physical abuse.? * Medical History:?Screening c olonoscopy 04/05, normal, ten-year followup. * Surgical History:?uterine ab lation x 2 2015, right foot surgery 01/2018. * Family History:?Father: randi dixon, diagnosed with HTN (hypertension).?Mother: , oct 15 2022 dementia, diagnosed with HTN (hypertension).? * Social History:?Tobacco Use:?Tobacco Use/Smoking?Patient is a?nonsmoker.?Drugs/Alcohol:?Alcohol Screen?Did you have a drink containing alcohol in the past year??Yes,?How often did you have a drink containing alcohol in the past year??2 to 4 times a month (2 points),?How many drinks did you have on a typical day when you were drinking in the past year??1 or 2 drinks (0 point),?How often did you have 6 or more drinks on one occasion in the past year??Never (0 point),?Points?2,?Interpretation?Negative.?Miscellaneous:?Marital status: . Occupation: teacher. * Medications:?Taking Align 4 MG Capsule as directed Orally , Taking Claritin 10 MG Tablet 1 tablet Orally Once a day, Taking Flaxseed Oil 1000 MG Capsule as directed Orally once a day, Taking Osteo Bi-Flex Regular Strength 250-200 MG Tablet 1 tablet with a meal Orally Once a day, Discontinued Aspir-81 81 MG Tablet Delayed Release 1 tablet Orally Once a day, Discontinued Colyte with Flavor Packs 240 GM Solution Reconstituted As directed Orally Over the specified time., Medication List reviewed and reconciled with the patient * Allergies:?Amoxicillin, Av ox, quinolones-allergy med, Penicillin. Objective: * Vitals:?Wt: 142 lbs, Ht: 64 in, BMI:24.37 Index, BP: 00/00 mm Hg, Temp: 97.3. * Examination: ???General Examination: ?GENERAL APPEARANCE:?in no acute distress.?HEAD:?normocephalic.?EYES:?sclera non-icteric.?ORAL CAVITY:?mucosa moist.?NECK/THYROID:?no lymphadenopathy.?SKIN:?anicteric.?HEART:?S1, S2 normal, no murmurs.?LUNGS:?clear to auscultation bilaterally.?CHEST:?normal shape and expansion.?ABDOMEN:?soft, nontender, nondistended, bowel sounds present, no organomegaly .?EXTREMITIES:?no clubbing, cyanosis, or edema.?PSYCH:?cognitive function intact.? Assessment: * Assessment: 1.?Coccydynia - M53.3 (Prima ry)?2.?Colon cancer screening - Z12.11?3.?Perianal dermatitis - L30.9? We discussed the causes of r ectal pain, perianal dermatitis, and coccydynia today. Her yeast infection has resolved, and was treated appropriately. No pathology was identified at the time of her evaluation with Dr. Blanca and MRI is pending. We recommended she follow through on this and let us know if there is any colonic pathology. We will arrange further evaluation pending these results. Followup p.r.n. Plan: * Treatment: * Procedure Codes:?3017F COLOR ECTAL CA SCREEN DOC REV, G9903 Pt scrn tbco id as non user, G9745 DOC RSN FOR NOT SCREEN/REC F/U HBP * Follow Up:?1 Year, prn * * Sign off status: Completed true * Provider:?Jimmy Hunter MD Date:?0 10/21/2023 Generated for Printi ambrocio/Nikolay/eTransmitting on:?02/08/2025 09:39 AM EDT History and Physical Notes * HPI (History of Present Illness) Category Sub-Category Detail Notes Category Not es New symptom(s) Mari is a pleasant 53-year-old woman seen today in consultation at the request of her primary care provider. She was last seen in March of 2019 for screening colonoscopy. This was normal and ten-year followup was recommended. In August of 2023, she developed bronchitis and was treated with a Z-Mohsen. Following this she developed a yeast infection in the perianal area which was treated with clotrimazole for 2 weeks. The yeast infection improved, however she still had rectal discomfort. She developed a bladder infection with hematuria. Urinalysis was positive and she was treated with Bactrim for 5 days which she finished 2 days ago. Because of persistent rectal discomfort she was seen in consultation by Dr. Blanca. Plain films of the pelvis were normal. She underwent anoscopy and had no significant findings of hemorrhoids, fistulas or fissures. She did have coccyx pain and has had an MRI of the pelvis scheduled. She has had some relief with zhpc-tvt-stwvddg ibuprofen. She reports bowel movements are fine without any diarrhea or rectal bleeding. She has been taking probiotics regularly. Examination Category Sub-Category Detail Notes Category Not es General Examination GENERAL APPEARANCE: in no acute di stress HEAD: normocephalic EYES: sclera non-icteric NECK/THYROID: no lymphadenopathy HEART: S1, S2 normal, no mu rmurs CHEST: normal shape and exp ansion LUNGS: clear to auscultatio n bilaterally ABDOMEN: soft, nontender, non distended, bowel sounds present, no organomegaly SKIN: anicteric EXTREMITIES: no clubbing, cyanosi s, or edema PSYCH: cognitive function i ntact ORAL CAVITY: mucosa moist
[2025-02-08 13:29] LABS: Alanine Aminotransferase 40 U/L (0-31); Albumin Level 4.3 g/dL (3.5-5.0); Alkaline Phosphatase 81 U/L (39-117); Aspartate Amino Transferase 34 U/L (5-31); Bilirubin Direct 0.2 mg/dL (0.0-0.5); Bilirubin Total 0.4 mg/dL (0.0-1.0); Cholesterol 231 mg/dL (<200); HDL Cholesterol 91 mg/dL (>40); LDL Cholesterol Calculated 131 mg/dL (<100); Total Protein 7.5 g/dL (6.5-8.0); Triglycerides 49 mg/dL (<150)
== END 2025-02-08 08:59 | disposition home or self-care (01) ==
LOC: HO.HMGCX 08:58
DX: R79.89 Other specified abnormal findings of blood chemistry (principal); E78.00 Pure hypercholesterolemia, unspecified
CPT/HCPCS: 36415; 76700; 80061; 80076

== ENCOUNTER → 2025-02-08 09:26 | Outpatient (BNV) | payer OTHER, BC, SELFPAY | PROVIDERS: Visit Provider Radiology Diagnostic Radiology | DX: R79.89 Other specified abnormal findings of blood chemistry (principal) | CPT/HCPCS: 76700 ==

== ENCOUNTER 2025-02-15 15:24 | Outpatient (AMB) | payer BC, OTHER, SELFPAY ==
--- NOTE | 2025-02-15 15:25 | A.OFFPC_ITS ---
Vital Signs 02/15/25 15:26 Height 5 ft 4 in Weight 154 lb 2 oz BMI 26.5 BP 116/72 Blood Pressure Location Lt brachial Position Sitting Pulse 77 Pulse Source Pulse Oximeter Pulse Oximetry (%) 98 Oxygen Delivery Method Room Air Intake Visit Reasons: OM[facility] Dr Guzman Roll Cutter Required: No Accompanied by: Self / Same As Patient Allergies sulfamethoxazole [From Bactrim] Allergy (Severe, Verified 02/15/25 15:31) Hives trimethoprim [From Bactrim] Allergy (Severe, Verified 02/15/25 15:31) Hives amoxicillin [AMOXICILLIN] Allergy (Unknown, Verified 02/15/25 15:31) RASH-HIVES, rash moxifloxacin [From AVELOX] Allergy (Unknown, Verified 02/15/25 15:31) RASH-HIVES penicillin G Allergy (Unknown, Verified 02/15/25 15:31) Unknown Quinolones [QUINOLONES] Allergy (Unknown, Verified 02/15/25 15:31) RASH-HIVES Quinolone Allergy (Unknown, Uncoded 02/15/25 15:31) hives Quinosone Allergy (Unknown, Uncoded 02/15/25 15:31) Unknown Tobacco use date assessed: 02/15/25 Dental Screening Dental Screen Date: 02/15/25 Did you have a dental visit in the last 12 months?: Yes Did you have a dental problem in the last 6 months where you did not have access to dental care?: No Was dental information given to patient?: Patient has dentist HPI [facility] Dr Guzman HPI Details 54-year-old female with past medical his tory hyperlipidemia and elevated LFTs last seen 11/11 coming in for transfer of care appointment.? In review of the notes, patient was seen and walk-in clinic 11/2024 treated for urinary tract infection discharged home. Presenting with concerns regarding abnormal liver tests. Initial testing in October identified elevated liver enzymes, with an ALT of 113, decreasing to 40 by January. A hepatic lesion found on the right lobe is suspected to be a hemangioma, prompting schedule MRI for further evaluation. The patient has suffered from skin reactions related to medication, specifically a rash from Bactrim, necessitating discontinuation and treatment with methylprednisolone, and has scheduled a patch test for potential allergens. Patient will be compl eting patch test next week. pap smear April 05 annual colonoscopy due in 4 years mammo April 09 COUNTS INCLUDE 234 BEDS AT [facility] Medical History Coccydynia Left ear pain Physical exam Surgical History [place] teeth removed Status post right foot surgery H/O prior ablation treatment Family History Mother Stroke Social History Housing: House Alcohol intake: current Alcohol intake frequency: other Alcohol type: wine Patient Tobacco Use Status: Never used Tobacco Tobacco use type: Cigarette e-Cigarette/Vaping Use: Never Used Second Hand Smoke Exposure: No service: No Current occupational status: employed Gender identity: Female Cognitive needs: No Hearing needs: No Vision needs: No Female Reproductive History Menstrual Age of Menarche: 10 Questionnaire PHQ-9 Over the last 2 weeks, how often have you been bothered by any of the following problems? 1. Little interest or pleasure in doing things: not at all 2. Feeling down, depressed, or hopeless: not at all 3. Trouble falling or staying asleep, or sleeping too much: not at all 4. Feeling tired or having little energy: not at all 5. Poor appetite or overeating: not at all 6. Feeling bad about yourself - or that you are a failure or have let yourself or your family down: not at all 7. Trouble concentrating on things, such as reading the newspaper or watching television: not at all 8. Moving or speaking so slowly that other people could have noticed. Or the opposite - being so fidgety or restless that you have been moving around a lot more than usual: not at all 9. Thoughts that you would be better off or of hurting yourself in some way: not at all Total score: 0 Depression Screening Interpretation: Negative Depression Screening Done: Yes Source: Developed by Drs. Harley Jimenez, Erika Núñez, Jose Francisco Garcia and colleagues, with an educational jong from [employer]. Thrive Questionnaire Date Thrive assessed: 02/15/25 I am a: Patient What is your living situation today?: I have a steady place to live Within the past 12 months, did the food you bought not last and you didn't have the money to get more?: Never true Within the past 12 months, did you worry whether your food would run out before you got money to buy more?: Never true Do you have trouble paying for medicines?: No Do you have trouble getting transportation to medical appointments?: No Do you have trouble paying your heating and electricity bill?: No Do you have trouble taking care of your child, family member or friend?: No Do you have trouble with day-to-day activities such as bathing, preparing meals, shopping, managing finances, etc.?: No Are you currently unemployed and looking for a job?: No Are you interested in more education?: No Please select the resources that you would like help with: None Currently or been in a relationship where the following occur: No concerns reported THRIVE Score: 0 AUDIT C Alcohol Use Questionnaire (AUDIT-C) 1. How often do you have a drink containing alcohol?: 2-4 times a month 2. How many drinks containing alcohol do you have on a typical day when you are drinking?: 1 or 2 3. How often do you have six or more drinks on one occasion?: Never Total Score: 2 MACHO-7 AMB Questionnaire MACHO-7 Date MACHO - 7 assessed: 02/15/25 Feeling nervous, anxious, or on edge: 1 = Several days Not being able to stop or control worryin = Not at all Worrying too much about different things: 0 = Not at all Trouble relaxin = Not at all Being so restless that it is hard to sit still: 0 = Not at all Becoming easily annoyed or irritable: 0 = Not at all Feeling afraid as if something awful might happen: 0 = Not at all Total MACHO-7 score (0-4 normal; 5-9 mild; 10-14 moderate; 15-21 severe): 1 Source: Developed by Drs. Harley Jimenez, Erika Núñez, Jose Francisco Garcia and colleagues, with an educational jong from [employer] [address]. MACHO-7 Assessment Billing MACHO-7 Assessment Tool: MACHO-7 Assessment 18732 Review of Systems Const Denies body aches, Denies chills, Denies fever(s), Denies headache(s) and Denies poor appetite Eyes Reports no additional complaints ENT Denies dizziness and Denies headache(s) Card Denies chest pain, Denies syncope, Denies lightheadedness and Denies dyspnea Resp Denies cough and Denies dyspnea GI Denies abdominal pain, Denies constipation, Reports diarrhea (occasional ), Denies nausea and Denies vomiting Reports no additional complaints Musc Reports no additional complaints and Denies abnormal gait Skin/Breast Reports system reviewed and no additional complaints, except as documented Neuro Denies abnormal gait, Denies dizziness, Denies syncope and Denies headache(s) Psych Reports no additional complaints Physical exam (Primary Care) Vital Signs: Last Vital Signs Pulse 77 02/15/25 15:26 BP 116/72 02/15/25 15:26 Pulse Ox 98 02/15/25 15:26 Oxygen Delivery Method Room Air 02/15/25 15:26 BMI result Body Mass Index 26.5 Tobacco/Smoking Status: Tobacco use Status Tobacco use date assessed 02/15/25 02/15/25 15:36 Patient Tobacco Use Status Never used Tobacco 02/15/25 15:36 Tobacco use type Cigarette 02/15/25 15:36 e-Cigarette/Vaping Use Never Used 02/15/25 15:36 PHQ-9: PHQ-9 Score PHQ-9: Total score 0 02/15/25 15:37 Depression Screening Interpretation: Negative Thrive Assessment: Date of Thrive Assessment Date Thrive assessed 02/15/25 02/15/25 15:36 Currently or been in a relationship where the following occur: No concerns reported Const General: cooperative, healthy appearing, comfortable and no acute distress Orientation/consciousness: patient oriented x3 [facility] Head: Yes normocephalic Ears: hearing grossly normal bilaterally General nose exam: Normal external nose present Eyes General: appearance normal, both eyes and all related structures Conjunctivae: conjunctivae normal Neck Neck: Yes full ROM and Yes no lymphadenopathy Resp Effort & Inspection: normal respiratory effort Auscultation: clear to auscultation bilaterally, no crackles, no rales, no rhonchi and no wheezes Cardio Rate: regular rate Rhythm: regular rhythm Skin General skin exam: no rashes or lesions noted Neuro General: patient oriented x3 Gait exam (Neuro): Normal gait present Extrem General: Yes normal to inspection, Yes full ROM and No edema Psych Affect: normal affect Attitude: cooperative Insight: Good insight present (Psych) Judgement: Good judgement present (Psych) Coding Level of Care Code Est Pt Level 3 (54428) Diagnoses Elevated LFTs R79.89 Liver lesion K76.9 Allergic dermatitis L23.9 Hyperlipidemia E78.5 Additional Codes MACHO-7 Assessment Billing - MACHO-7 Assessment Tool: MACHO-7 Assessment 60521 ([id number]) Assessment & Plan Assessment & Plan (1) Elevated LFTs: Code(s): R79.89 - Other specified abnormal findings of blood chemistry Category: Medical Plan: Abdominal ultrasound revealed liver lesion suspected to be a hemangioma and is undergoing MRI for further evaluation. (2) Liver lesion: Code(s): K76.9 - Liver disease, unspecified Category: Medical Plan: Patient having liver lesion possibly hemangioma on ultrasound last month. MRI was ordered for further evaluation to be completed tomorrow. Plan to obtain results and discuss with patient once results are available. (3) Allergic dermatitis: Code(s): L23.9 - Allergic contact dermatitis, unspecified cause Category: Medical Plan: Patient to undergo patch testing with Dermatology next week. Continue to follow with dermatology (4) Hyperlipidemia: Code(s): E78.5 - Hyperlipidemia, unspecified Category: Medical Plan: Avoid foods that are high in cholesterol such as red meat, fried foods, eggs and baked goods. Triglyceride goal of less than 150 and LDL goal of less than 130. Patient's ASCVD risk is 1.3% not necessitating statin management at this time. I did discuss this with the patient plan to continue dietary and lifestyle modification as well as reducing other risk factors including blood sugars and blood pressure. Plan We are proceeding with an MRI to examine the hepatic lesion and assess the cause of persistent liver enzyme elevations, suspected to be a benign hemangioma. The hepatitis panel will ascertain any potential infectious components. 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 Lifestyle modifications for cholesterol management are effective; thus, medication is not currently required. Continued monitoring of lipid levels and liver function is essential. This note was constructed using voice recognition software. While every effort has been made to ensure accuracy and rn women services, still areas may have been included sometimes these areas may affect the content or meeting of the given symptoms. Total time spent caring for the patient today was 20 minutes. This includes time spent before the visit reviewing the chart, time spent during the visit, and time spent after the visit and documentation. Patient was informed and verbally consented to the use of an ambient scribe for clinic note documentation during this visit. Orders: Orders Hepatitis B,C Profile Today R79.89 - Other specified abnormal findings of blood chemistry Referrals Dermatology Referral L23.9 - Allergic contact dermatitis, unspecified cause
[2025-02-15 15:26] VITALS: BP 116/72; PULSE 77; O2SAT 98; BMI 26.5
--- OUTSIDE RECORDS SUMMARY | 2025-02-15 17:11 | XMS_ITS | Patient Health Record ---
[facility] Address [address] [place] [address] Care Team Providers Care Office Engineer Name Role Phone Megan MARTINEZ, [place] Primary Care Provider Joshua Scanlon Unavailable [phone] Allergies Allergen (clinical drug ingredient) Drug/Non Drug [...] Status Risk Notes Problem Acquired hallux valgus (37642904) Hallux valgus (acquired), left foot (M20.12) Active confirmed Problem Acquired hallux valgus (70007138) Hallux valgus (acquired), right foot (M20.11) Active confirmed Plan Of Treatment Pending Test Test Name Order Date X ray : Foot, left 3V 03/22/2023 X ray : Foot, right 3V 03/22/2023 Insurance Providers Payer Name Payer Address Payer Phone Subscriber Number Group Number Insured Name Patient Relationship to Insured Coverage Start Date Coverage End Date [facility] [address] [place] [address] [id number] Errol Montenegro Spouse - patient is the spouse of the insured [facility] [address] [place] [address] [phone] [id number] Candi Montenegro Self - patient is the insured Medical (General) History Medical History History ICD Code osteoarthritis Knee Pain Chicken pox Broken Thumb Acupuncture for Left Knee Arthritis Surgical History Surgery Date(Month/Year) Uterine ablation 11/2015 Bone removal, 2 Toes of Right Foot 02/04 18
--- OUTSIDE RECORDS SUMMARY | 2025-02-15 17:12 | XMS_ITS | Data Portability ---
Author Organization [facility] Address [address] [place] [id number] Assessment No assessment recorded. Plan of Treatment Reminders Order Date Submit Date Provider Last Modified By Organization Details Last Modified Time Details Appointments None recorded. Lab culture, urine 2023 024 [place] [facility] ([facility], [address] [place] [address], [place], [address], 4 18:06:02 urinalysis, dipstick 2023 024 [place] [address] [facility], [address] [place], [address], 4 20:25:10 Referral None recorded. Procedures None recorded. Surgeries None recorded. Imaging None recorded. Medication Orders Pyridium [address] [facility] #[id number], [address] [place], [address], 4 20:25:09 sulfamethox azole 800 mg-trimetho prim 160 [address] tablet [address] [facility] #[id number], [address] [place], [address], 4 20:25:10 Diflucan 150 mg tablet [address] [facility] #[id number], [address] [place], [address], 20:25:10 Patient TargetsNo targets recorded. Patient Instructions Encounter Date Encounter Id Patient Instructions Last Modified By Organization Details Last Modified Time 02/08/2024 [id number] painful urinatio n (dysuria): care instructions dallasm2 [...] routine FINAL REPORT abnormal Not Available [facility] ([facility]) [address] [facility], [place], [address], 02/11/2024 12:06:14 02/08/2002/11/2024 URINE CULTU REARISTEO NE [...] ng units per mL Not Available [facility] ([facility]) [address] [facility], [place], [address], 02/11/2024 12:06:14 02/08/20 24 02/11/2024 URINE CULTU [...] thopr im/Lux lfa S Not Available [facility] ([facility]) [address] [facility], [place], [address], 02/11/2024 12:06:14 02/08/20 24 02/08/2024 urina lysis , dipst ick Unknown Analyte Normal = light yellow Not Available [facility] [address] [place] [address], [phone], 02/08/2024 18:21:26 02/08/20 24 02/08/2024 urina lysis , dipst ick Unknown Analyte Light Yellow Not Available rust [facility] [address] [place] [address], [phone], 02/08/2024 18:21:26 02/08/20 24 02/08/2024 urina lysis , dipst ick Unknown Analyte Normal = clear Not Available [facility] [address] [place] [address], [address], 02/08/2024 18:21:26 02/08/20 24 02/08/2024 urina lysis , dipst ick Unknown Analyte Clear Not Available e [facility] [address] [place] [address], [phone], 02/08/2024 18:21:26 02/08/20 24 02/08/2024 urina lysis , dipst ick Unknown Analyte Normal = negati ve Not Available [facility] [address] [place] [address], [address], 02/08/2024 18:21:26 02/08/20 24 02/08/2024 urina lysis , dipst ick Unknown Analyte Negati ve Not Available [facility] [address] [place] [address], [address], 02/08/2024 18:21:26 02/08/20 24 02/08/2024 urina lysis , dipst ick Unknown Analyte Normal = Negati ve Not Available [facility] [address] [place] [address], [phone], 02/08/2024 18:21:26 02/08/20 24 02/08/2024 urina lysis , dipst ick Unknown Analyte Negati ve Not Available [facility] [address] [place] [address], [address], 02/08/2024 18:21:26 02/08/20 24 02/08/2024 urina lysis , dipst ick Unknown Analyte Normal = Negati ve Not Available [facility] [address] [place] [address], [address], 02/08/2024 18:21:26 02/08/20 24 02/08/2024 urina lysis , dipst ick Unknown Analyte Negati ve Not Available [facility] [address] [place] [address], [address], 02/08/2024 18:21:26 02/08/20 24 02/08/2024 urina lysis , dipst ick Unknown Analyte Normal = 1.010, 1.015, 1.020 Not Available [facility] [address] [place] [address], [address], 02/08/2024 18:21:26 02/08/20 24 02/08/2024 urina lysis , dipst ick Unknown Analyte 1.010 Not Available [address], [address], 02/08/2024 18:21:26 02/08/20 24 02/08/2024 urina lysis , dipst ick Unknown Analyte Normal = Negati ve Not Available rust ie [address], [address], 02/08/2024 18:21:26 02/08/20 24 02/08/2024 urina lysis , dipst ick Unknown Analyte Modera te Not Available rust ie [address], [address], 02/08/2024 18:21:26 02/08/20 24 02/08/2024 urina lysis , dipst ick Unknown Analyte Normal = 6.5, 7.0, 7.5, 8.0 Not Available rust ie [address], [address], 02/08/2024 18:21:26 02/08/20 24 02/08/2024 urina lysis , dipst ick Unknown Analyte 7.0 Not Available [address], [address], 02/08/2024 18:21:26 02/08/20 24 02/08/2024 urina lysis , dipst ick Unknown Analyte Normal = Negati ve Not Available rust ie [address], [address], 02/08/2024 18:21:26 02/08/20 24 02/08/2024 urina lysis , dipst ick Unknown Analyte Negati ve Not Available rust ie [facility] [address] [place] [address], [address], 02/08/2024 18:21:26 02/08/20 24 02/08/2024 urina lysis , dipst ick Unknown Analyte Normal = 0.2, 1.0 Not Available [facility] [address] [place] [address], [address], 02/08/2024 18:21:26 02/08/20 24 02/08/2024 urina lysis , dipst ick Unknown Analyte 0.2 E.U./d L Not Available [facility] [address] [place] [address], [address], 02/08/2024 18:21:26 02/08/20 24 02/08/2024 urina lysis , dipst ick Unknown Analyte Normal = Negati ve Not Available [facility] [address] [place] [address], [address], 02/08/2024 18:21:26 02/08/20 24 02/08/2024 urina lysis , dipst ick Unknown Analyte Negati ve Not Available [facility] [address] [place] [address], [address], 02/08/2024 18:21:26 02/08/20 24 02/08/2024 urina lysis , dipst ick Unknown Analyte Normal = Negati ve Not Available [facility] [address] [place] [address], [address], 02/08/2024 18:21:26 02/08/20 24 02/08/2024 urina lysis , dipst ick Unknown Analyte Small Not Available e [facility] [address] [place] [address], [address], 02/08/2024 18:21:26 Result Notes None recorded. Problems No Known Problems Medical Equipment None Reported. Allergies Allergen ID Allergen Name Allergen Category Reaction Reaction Severity Criticality Documentation Date Start Date Code Code System Note Provider Name and Address Organization Details Recorded Time 83191218 amoxicill in medicatio n Not available Not available Not available 02/08/2024 723 RxNorm ROSANA MINEO null, [place] - [facility] 18:18:43 228545 Product containin g penicilli n (product) medicatio n Not available Not available Not available 02/08/2024 95573 8001 SNOMED ROSANA MINEO null, [place] - [facility] 18:18:48 657157 Medicinal product containin g quinolone and acting as antibacte rial agent (product) medicatio n Not available Not available Not available 02/08/2024 53639 008 SNOMED ROSANA MINEO null, PA - [facility] 18:18:59 807209 Avelox medicatio n Not available Not available Not available 02/08/2024 15470 6 RxNorm ROSANA MINEO null, PA - [...] Last Updated DateTime 162.56 cm 25.1 kg/m2 27074.4 9 g 18 /min 98.1 [degF] 71 [...] SNOMED-CT Code Diagnosis ICD10 Code Diagnosis Note [id number] [address] [place] [address] [address] [address] 09/03/2016 16:21:02 09/03/2016 17:29:[id number] [place] [address] [address] [address] 12/01/2017 18:18:11 12/01/2017 19:53:[id number] [place] [address] [address] 03/12/2022 16:12:59 03/12/2022 17:22:15 [id number] [place] [address] [address] 02/08/2024 18:09:40 02/08/2024 20:26:14 Acute urinary tract infection 315521323 N39.0 .TA-UTI_Al le-D/C Dysuria 69198012 R30.0 Health Concerns Section Related Observation LastModified by Organization Detai ls LastModified Time None Recorded Concern Status LastModified by Organization Details LastModified Time None Recorded Advance Directives Directive None Recorded Payers Encounter Date Sequence Insurance Name Policy Number Policy Mares Covered Member ID Mares Member ID Guarantor Name 09/03/2016 1 [employer] [id number] Errol Nugentktor [id number] Candi Grimm Doktor 12/01/2017 1 [employer] [id number] Errol Doktor [id number] Candi Grimm Doktor 02/08/2024 1 [employer]) [id number] Errol Doktor [id number] Candi Grimm Doktor Notes Date Note Type Note Provider Name and Address Organization Details Recorded Time 4 text/html Urinary Complaint FemaleReported bypatient.source of patient informationInformation obtained from patient UTI Symptoms:no blood in the urine; no fever/chills;urgency;urinar y frequency Severity:moderate Duration:started ; 2 days Modifying Factors:nothing gives relief; No other complaints Lubna Dietrich MD [address] [place], [address], [place] - [facility] 02/16/2024 20:32:53 OBGyn Episode No OBEpisode recorded.
== END 2025-02-15 16:42 | disposition home or self-care (01) ==
LOC: HO.HMCH 15:25
PROVIDERS: PCP Internal Medicine
DX: R79.89 Other specified abnormal findings of blood chemistry (principal); K76.9 Liver disease, unspecified; L23.9 Allergic contact dermatitis, unspecified cause; E78.5 Hyperlipidemia, unspecified

== ENCOUNTER → 2025-02-15 15:24 | Outpatient (BNVA) | payer BC, OTHER, SELFPAY | PROVIDERS: PCP Internal Medicine | DX: R79.89 Other specified abnormal findings of blood chemistry (principal); K76.9 Liver disease, unspecified; L23.9 Allergic contact dermatitis, unspecified cause; E78.5 Hyperlipidemia, unspecified | CPT/HCPCS: 96127 ==

== ENCOUNTER 2025-02-16 15:31 | Outpatient (REF) | payer BC, OTHER, SELFPAY ==
--- NOTE | ~2025-02-16 | MR_ITS ---
EXAMINATION: MR ABDOMEN WITHOUT THEN WITH IV CONTRAST HISTORY: K76.9 - Liver disease, unspecified COMPARISON: Correlation is made with an abdominal ultrasound dated 02/08/2025. TECHNIQUE: Axial in and out of phase T1-weighted gradient echo, axial diffusion weighted, and axial and coronal HASTE T2 with fat saturation images were obtained through the abdomen. Subsequently, fat suppressed axial and coronal T1-weighted images were obtained after the intravenous administration of 6.5 mL Gadavist. FINDINGS: There is mild to moderate motion artifact. There is no significant signal loss within the liver on opposed phase imaging to suggest steatosis. There is a well-circumscribed 12 mm T2 hyperintense lesion in segment VIII which demonstrates peripheral nodular enhancement, compatible with a hemangioma. No additional enhancing liver mass is identified. The hepatic and portal veins are patent. The gallbladder, spleen, pancreas, adrenals, and kidneys are unremarkable. No retroperitoneal lymphadenopathy or ascites is identified in the upper abdomen. The visualized bones demonstrate normal marrow signal intensity. MR/MR abdomen wo/w con IMPRESSION: 12 mm hemangioma in the right lobe of the liver as seen on ultrasound. Electronically signed by: Harley Gabriel MD 02/19/2025 07:09 AM EDT
--- OUTSIDE RECORDS SUMMARY | 2025-02-16 15:35 | XMS_ITS | Patient Health Record ---
Author Organization [facility] Address [address] [place] [address] Care Team Providers Care Abrasive Mixer Name Role Phone Checo Guzman MD Primary [...] Problem Status W/U Status Risk Notes Problem 420719698 Colon cancer screening (Z12.11) Active confirmed Problem 20792395 Encounter for other preprocedural examination (Z01.818) Active confirmed Problem 146304017 Long-term use of aspirin therapy (Z79.82) Active confirmed Problem 40333251 Coccydynia (M53.3) Active confirmed Problem 141139473 Perianal dermatitis (L30.9) Active confirmed Plan Of Treatment Future Test Test Name Order Date COLONOSCOPY 12/02/2018 Insurance Providers Payer Name Payer Address Payer Phone Subscriber Number Group Number Insured Name Patient Relationship to Insured Coverage Start Date Coverage End Date [employer] [address] [place] [phone] [id number] MARI BUTLER Self - patient is the insured Medical (General) History Medical History History ICD Code Screening colonoscopy 04/05, normal, ten- year followup Surgical History Surgery Date(Month/Year) uterine ablation x 2 2015 right foot surgery 01/2018
--- OUTSIDE RECORDS SUMMARY | 2025-02-16 15:35 | XMS_ITS | Patient Health Record ---
[facility] Address [address] [facility] [place] [address] Care Team Providers Care Knuckler Name Role Phone Megan MARTINEZ, Checo Primary Care Provider Joshua Scanlon Unavailable [phone] Allergies Allergen (clinical drug ingredient) Drug/Non Drug [...] Status Risk Notes Problem Acquired hallux valgus (59985448) Hallux valgus (acquired), left foot (M20.12) Active confirmed Problem Acquired hallux valgus (89242785) Hallux valgus (acquired), right foot (M20.11) Active confirmed Plan Of Treatment Pending Test Test Name Order Date X ray : Foot, left 3V 03/22/2023 X ray : Foot, right 3V 03/22/2023 Insurance Providers Payer Name Payer Address Payer Phone Subscriber Number Group Number Insured Name Patient Relationship to Insured Coverage Start Date Coverage End Date [facility] [address] [place] [address] [id number] Errol Montenegro Spouse - patient is the spouse of the insured [facility] [address] [place] [address] [id number] Candi Montenegro Self - patient is the insured Medical (General) History Medical History History ICD Code osteoarthritis Knee Pain Chicken pox Broken Thumb Acupuncture for Left Knee Arthritis Surgical History Surgery Date(Month/Year) Uterine ablation 11/2015 Bone removal, 2 Toes of Right Foot 02/04 18
--- OUTSIDE RECORDS SUMMARY | 2025-02-16 15:35 | XMS_ITS ---
Author Organization [facility] Address [address] [place] [address] Care Team Providers Care Telephone Repairer Name Role Phone Megan MARTINEZ, Checo Primary [...] Problem Status W/U Status Risk Notes Problem 58070316 Coccydynia (M53.3) Active confirmed Problem 968083168 Perianal dermatitis (L30.9) Active confirmed Vital Signs Temperature 97.3 degrees Fahrenheit 10/21/19 24 Blood pressure systolic 00 mm Hg 10/21/19 24 Blood pressure diastolic 00 mm Hg 024 Height 64 in 10/21/2023 Weight 142 lbs 10/21/2023 BMI 24.37 kg/m2 10/21/2023 Encounters Encounter Location Date Provider Diagnosis [facility] [address] [place] [address] 10/21/2023 Jimmy Hunter Jr Colon cancer screening [...] MARI BUTLER ADOB: [birth year] (53 yo F)Acc No.[id number]:10/21/2023 Progress Notes Patient:?MARI BUTLER A Provider:?Jimmy Hunter MD :1970???Age:53 Y???Sex:Female D ate:10/21/2023 Address:[address] [place], [place] [id number] Pcp:Checo Guzman MD Subjective: * Chief Complaints: [...] scheduled. She has had some relief with tvvt-tjy-smuxils ibuprofen. ?She reports bowel movements are fine [...] MD Date:?0 10/21/2023 Generated for Printi ambrocio/Nikolay/eTransmitting on:?02/16/2025 03:35 PM EDT History and Physical Notes * HPI [...] scheduled. She has had some relief with fbib-[id number]-[id number] ibuprofen. She reports bowel movements are fine [...]
[2025-02-16] MEDS: gadobutroL 7.5 ML VIAL IVPUSH (16:31)
== END 2025-02-16 15:32 | disposition home or self-care (01) ==
LOC: HO.MRI 15:31
DX: K76.9 Liver disease, unspecified (principal)
CPT/HCPCS: 74183; A9585

== ENCOUNTER → 2025-02-16 15:40 | Outpatient (BNV) | payer BC, OTHER, SELFPAY | PROVIDERS: Visit Provider Radiology Diagnostic Radiology | DX: D18.03 Hemangioma of intra-abdominal structures (principal) | CPT/HCPCS: 74183 ==

== ENCOUNTER 2025-05-17 15:20 | Outpatient (REF) | payer BC, SELFPAY ==
--- OUTSIDE RECORDS SUMMARY | 2025-05-17 15:27 | XMS_ITS | Patient Health Record ---
Author Organization [facility] Address [address] [place] [address] Care Team Providers Care Level Vial Inspector And Tester Name Role Phone Checo Guzman MD Primary [...] Problem Status W/U Status Risk Notes Problem [id number] Colon cancer screening (Z12.11) Active confirmed Problem 18748012 Encounter for other preprocedural examination (Z01.818) Active confirmed Problem 051114398 Long-term use of aspirin therapy (Z79.82) Active confirmed Problem 59601547 Coccydynia (M53.3) Active confirmed Problem 237854008 Perianal dermatitis (L30.9) Active confirmed Plan Of Treatment Future Test Test Name Order Date COLONOSCOPY 12/02/2018 Insurance Providers Payer Name Payer Address Payer Phone Subscriber Number Group Number Insured Name Patient Relationship to Insured Coverage Start Date Coverage End Date [employer] [address] [place] [address] [id number] MARI BUTLER Self - patient is the insured Medical (General) History Medical History History ICD Code Screening colonoscopy 04/05, normal, ten- year followup Surgical History Surgery Date(Month/Year) uterine ablation x 2 2015 right foot surgery 01/2018
--- OUTSIDE RECORDS SUMMARY | 2025-05-17 15:27 | XMS_ITS | Patient Health Record ---
[facility] Address [address] [facility] [place] [address] Care Team Providers Care Sewage Treatment Plant Operator Name Role Phone Megan MARTINEZ, Checo Primary Care Provider Joshua Scanlon Unavailable [phone] Allergies Allergen (clinical drug ingredient) Drug/Non Drug [...] Status Risk Notes Problem Acquired hallux valgus (83524554) Hallux valgus (acquired), left foot (M20.12) Active confirmed Problem Acquired hallux valgus (59658796) Hallux valgus (acquired), right foot (M20.11) Active confirmed Plan Of Treatment Pending Test Test Name Order Date X ray : Foot, left 3V 03/22/2023 X ray : Foot, right 3V 03/22/2023 Insurance Providers Payer Name Payer Address Payer Phone Subscriber Number Group Number Insured Name Patient Relationship to Insured Coverage Start Date Coverage End Date [facility] [address] [facility] [place] [address] [id number] Errol Montenegro Spouse - patient is the spouse of the insured [facility] [address] [place] [address] [id number] Candi Montenegro Self - patient is the insured Medical (General) History Medical History History ICD Code osteoarthritis Knee Pain Chicken pox Broken Thumb Acupuncture for Left Knee Arthritis Surgical History Surgery Date(Month/Year) Uterine ablation 11/2015 Bone removal, 2 Toes of Right Foot 02/04 18
[2025-05-18 03:41] LABS: HBS Num1 0.79 mIU/mL (0-7.99); HBc Num1 0.10 S/CO (0.00-0.79); HBsAGNum1 0.34 S/CO (0.00-0.99); Hepatitis B Surface Antigen Negative (Negative); ~HepC Num1 0.11 S/CO (0.00-0.79); ~Hepatitis B Surface Antibody NONREACTIVE (Nonreactive); ~Hepatitis C Antibody Nonreactive (Nonreactive)
== END 2025-05-17 15:21 | disposition home or self-care (01) ==
LOC: HO.WFDLDS 15:20
DX: R79.89 Other specified abnormal findings of blood chemistry (principal); Z11.59 Encounter for screening for other viral diseases
CPT/HCPCS: 36415; 86704; 86706; 86803; 87340

== ENCOUNTER 2025-05-24 08:42 | Outpatient (REF) | payer BC, SELFPAY ==
--- OUTSIDE RECORDS SUMMARY | 2025-05-24 08:57 | XMS_ITS | Patient Health Record ---
Author Organization [facility] Address [address] [place] [address] Care Team Providers Care Fur Dry Cleaner Name Role Phone Checo Guzman MD Primary Care Provider Jimmy Dunlap Jr Unavailable [phone] Allergies Allergen (clinical drug ingredient) Drug/Non Drug [...] Problem Status W/U Status Risk Notes Problem 277073067 Colon cancer screening (Z12.11) Active confirmed Problem 90625628 Encounter for other preprocedural examination (Z01.818) Active confirmed Problem 168397734 Long-term use of aspirin therapy (Z79.82) Active confirmed Problem 27598275 Coccydynia (M53.3) Active confirmed Problem 295059676 Perianal dermatitis (L30.9) Active confirmed Plan Of Treatment Future Test Test Name Order Date COLONOSCOPY 12/02/2018 Insurance Providers Payer Name Payer Address Payer Phone Subscriber Number Group Number Insured Name Patient Relationship to Insured Coverage Start Date Coverage End Date [employer] [address] [facility] [place] [place] [address] [id number] MARI BUTLER Self - patient is the insured Medical (General) History Medical History History ICD Code Screening colonoscopy 04/05, normal, ten- year followup Surgical History Surgery Date(Month/Year) uterine ablation x 2 2015 right foot surgery 01/2018
--- OUTSIDE RECORDS SUMMARY | 2025-05-24 08:57 | XMS_ITS | Patient Health Record ---
[facility] Address [address] [facility] [place] [address] Care Team Providers Care Cooler Operator Name Role Phone Megan MARTINEZ, Checo Primary Care Provider Joshua Scanlon Unavailable [phone] Allergies Allergen (clinical drug ingredient) Drug/Non Drug [...] Status Risk Notes Problem Acquired hallux valgus (86854489) Hallux valgus (acquired), left foot (M20.12) Active confirmed Problem Acquired hallux valgus (89507513) Hallux valgus (acquired), right foot (M20.11) Active confirmed Plan Of Treatment Pending Test Test Name Order Date X ray : Foot, left 3V 03/22/2023 X ray : Foot, right 3V 03/22/2023 Insurance Providers Payer Name Payer Address Payer Phone Subscriber Number Group Number Insured Name Patient Relationship to Insured Coverage Start Date Coverage End Date [facility] [address] [place] [address] [id number] Errol Montenegro Spouse - patient is the spouse of the insured [facility] [address] [place] [address] [phone] [id number] Candi Montenegro Self - patient is the insured Medical (General) History Medical History History ICD Code osteoarthritis Knee Pain Chicken pox Broken Thumb Acupuncture for Left Knee Arthritis Surgical History Surgery Date(Month/Year) Uterine ablation 11/2015 Bone removal, 2 Toes of Right Foot 02/04 18
[2025-05-24 12:03] LABS: Cholesterol 234 mg/dL (<200); HDL Cholesterol 79 mg/dL (>40); Triglycerides 51 mg/dL (<150)
== END 2025-05-24 08:43 | disposition home or self-care (01) ==
LOC: HO.WFDLDS 08:42
DX: E78.00 Pure hypercholesterolemia, unspecified (principal)
CPT/HCPCS: 36415; 80061

== ENCOUNTER 2025-06-07 15:50 | Outpatient (AMB) | payer BC, OTHER, SELFPAY ==
--- OUTSIDE RECORDS SUMMARY | 2025-06-07 15:54 | XMS_ITS | Patient Health Record ---
Author [facility] Address [address] [facility] [place] [address] Care Team Providers Care Lapper Name Role Phone Megan MARTINEZ, Checo Primary Care Provider Joshua Scanlon Unavailable [phone] Allergies Allergen (clinical drug ingredient) Drug/Non Drug [...] Status Risk Notes Problem Acquired hallux valgus (18418319) Hallux valgus (acquired), left foot (M20.12) Active confirmed Problem Acquired hallux valgus (14324330) Hallux valgus (acquired), right foot (M20.11) Active confirmed Plan Of Treatment Pending Test Test Name Order Date X ray : Foot, left 3V 03/22/2023 X ray : Foot, right 3V 03/22/2023 Insurance Providers Payer Name Payer Address Payer Phone Subscriber Number Group Number Insured Name Patient Relationship to Insured Coverage Start Date Coverage End Date [facility] [address] [place] [address] [id number] Errol Montenegro Spouse - patient is the spouse of the insured [facility] [address] [place] [address] [id number] Candi Montenegro Self - patient is the insured Medical (General) History Medical History History ICD Code osteoarthritis Knee Pain Chicken pox Broken Thumb Acupuncture for Left Knee Arthritis Surgical History Surgery Date(Month/Year) Uterine ablation 11/2015 Bone removal, 2 Toes of Right Foot 02/04 18
--- OUTSIDE RECORDS SUMMARY | 2025-06-07 15:55 | XMS_ITS | Patient Health Record ---
Author Organization [facility] Address [address] [place] [address] Care Team Providers Care Research Coordinator Name Role Phone Checo Guzman MD Primary Care Provider Jimmy Dunlap Jr Unavailable [phone] Allergies Allergen (clinical drug ingredient) Drug/Non Drug [...] Problem Status W/U Status Risk Notes Problem 596305999 Colon cancer screening (Z12.11) Active confirmed Problem 20925696 Encounter for other preprocedural examination (Z01.818) Active confirmed Problem 508799896 Long-term use of aspirin therapy (Z79.82) Active confirmed Problem 12264763 Coccydynia (M53.3) Active confirmed Problem 252849089 Perianal dermatitis (L30.9) Active confirmed Plan Of Treatment Future Test Test Name Order Date COLONOSCOPY 12/02/2018 Insurance Providers Payer Name Payer Address Payer Phone Subscriber Number Group Number Insured Name Patient Relationship to Insured Coverage Start Date Coverage End Date [employer] [address] [facility] [place] [address] [id number] MARI BUTLER Self - patient is the insured Medical (General) History Medical History History ICD Code Screening colonoscopy 04/05, normal, ten- year followup Surgical History Surgery Date(Month/Year) uterine ablation x 2 2015 right foot surgery 01/2018
[2025-06-07 16:02] VITALS: BP 136/70; PULSE 81; O2SAT 98; BMI 27.0
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
== END 2025-06-07 16:53 | disposition home or self-care (01) ==
LOC: HO.HMCH 15:51
PROVIDERS: PCP Internal Medicine
DX: Z00.00 Encounter for general adult medical examination without abnormal findings (principal); K76.9 Liver disease, unspecified; L23.9 Allergic contact dermatitis, unspecified cause; E78.5 Hyperlipidemia, unspecified; Z12.4 Encounter for screening for malignant neoplasm of cervix; R05.9 Cough, unspecified

== ENCOUNTER 2025-06-11 15:57 | Outpatient (REF) | payer BC, OTHER, SELFPAY ==
--- OUTSIDE RECORDS SUMMARY | 2025-06-11 17:53 | XMS_ITS | Patient Health Record ---
[facility] Address [address] [facility] [place] [address] Care Team Providers Care Alum Plant Operator Name Role Phone Megan MARTINEZ, Checo Primary Care Provider Joshua Scanlon Unavailable [phone] Allergies Allergen (clinical drug ingredient) Drug/Non Drug [...] Status Risk Notes Problem Acquired hallux valgus (09010320) Hallux valgus (acquired), left foot (M20.12) Active confirmed Problem Acquired hallux valgus (00804396) Hallux valgus (acquired), right foot (M20.11) Active confirmed Plan Of Treatment Pending Test Test Name Order Date X ray : Foot, left 3V 03/22/2023 X ray : Foot, right 3V 03/22/2023 Insurance Providers Payer Name Payer Address Payer Phone Subscriber Number Group Number Insured Name Patient Relationship to Insured Coverage Start Date Coverage End Date [facility] [address] [facility] [place] [address] [id number] Errol Montenegro Spouse - patient is the spouse of the insured [facility] [address] [place] [address] [id number] Candi Montenegro Self - patient is the insured Medical (General) History Medical History History ICD Code osteoarthritis Knee Pain Chicken pox Broken Thumb Acupuncture for Left Knee Arthritis Surgical History Surgery Date(Month/Year) Uterine ablation 11/2015 Bone removal, 2 Toes of Right Foot 02/04 18
--- OUTSIDE RECORDS SUMMARY | 2025-06-11 17:53 | XMS_ITS | Patient Health Record ---
Author Organization [facility] Address [address] [place] [address] Care Team Providers Care Dancer Or Choreographer Name Role Phone Checo Guzman MD Primary Care Provider Jimmy Dunlap Jr Unavailable [phone] Allergies Allergen (clinical drug ingredient) Drug/Non [...] Problem Status W/U Status Risk Notes Problem 212641451 Colon cancer screening (Z12.11) Active confirmed Problem 13039031 Encounter for other preprocedural examination (Z01.818) Active confirmed Problem 129975984 Long-term use of aspirin therapy (Z79.82) Active confirmed Problem 00918847 Coccydynia (M53.3) Active confirmed Problem 036050873 Perianal dermatitis (L30.9) Active confirmed Plan Of Treatment Future Test Test Name Order Date COLONOSCOPY 12/02/2018 Insurance Providers Payer Name Payer Address Payer Phone Subscriber Number Group Number Insured Name Patient Relationship to Insured Coverage Start Date Coverage End Date [employer] [address] [facility] [place] [address] [id number] MARI BUTLER Self - patient is the insured Medical (General) History Medical History History ICD Code Screening colonoscopy 04/05, normal, ten- year followup Surgical History Surgery Date(Month/Year) uterine ablation x 2 2015 right foot surgery 01/2018
== END 2025-06-11 15:58 | disposition home or self-care (01) ==
LOC: HO.MAMMO 15:57
DX: Z12.31 Encounter for screening mammogram for malignant neoplasm of breast (principal)
CPT/HCPCS: 77063; 77067

== ENCOUNTER → 2025-06-11 16:15 | Outpatient (BNV) | payer BC, OTHER, SELFPAY | PROVIDERS: Visit Provider Radiology Body Imaging | DX: Z12.31 Encounter for screening mammogram for malignant neoplasm of breast (principal) | CPT/HCPCS: 77063; 77067 ==

== ENCOUNTER 2025-07-14 09:41 | Outpatient (REF) | payer BC, SELFPAY ==
--- NOTE | ~2025-07-14 | XR_ITS ---
EXAMINATION: XR CHEST CLINICAL INFORMATION: R05.9 - Cough, unspecified COMPARISON: None available. TECHNIQUE: 2 views of the chest were obtained. FINDINGS: No significant abnormality is noted involving the heart, lungs, mediastinum, bony thorax or soft tissues. XR/XR chest 2V IMPRESSION: Unremarkable chest examination. Electronically signed by: Sundar Curran MD 07/16/2025 08:04 AM EDT RP
--- OUTSIDE RECORDS SUMMARY | 2025-07-14 09:45 | XMS_ITS | Patient Health Record ---
[facility] Address [address] [facility] [place] [address] Care Team Providers Care Confidential Secretary Name Role Phone Megan MARTINEZ, Checo Primary Care Provider Joshua Scanlon Unavailable [phone] Allergies Allergen (clinical drug ingredient) Drug/Non Drug [...] Status Risk Notes Problem Acquired hallux valgus (19600012) Hallux valgus (acquired), left foot (M20.12) Active confirmed Problem Acquired hallux valgus (95922472) Hallux valgus (acquired), right foot (M20.11) Active confirmed Plan Of Treatment Pending Test Test Name Order Date X ray : Foot, left 3V 03/22/2023 X ray : Foot, right 3V 03/22/2023 Insurance Providers Payer Name Payer Address Payer Phone Subscriber Number Group Number Insured Name Patient Relationship to Insured Coverage Start Date Coverage End Date [facility] [address] [facility] [place] [address] [id number] Errol Montenegro Spouse - patient is the spouse of the insured [facility] [address] [place] [address] [id number] Candi Montenegro Self - patient is the insured Medical (General) History Medical History History ICD Code osteoarthritis Knee Pain Chicken pox Broken Thumb Acupuncture for Left Knee Arthritis Surgical History Surgery Date(Month/Year) Uterine ablation 11/2015 Bone removal, 2 Toes of Right Foot 02/04 18
--- OUTSIDE RECORDS SUMMARY | 2025-07-14 09:46 | XMS_ITS | Patient Health Record ---
Author Organization [facility] Address [address] [place] [address] Care Team Providers Care Refrigerator Repairman Name Role Phone Checo Guzman MD Primary Care Provider Jimmy Dunlap Jr Unavailable [phone] Allergies Allergen (clinical drug ingredient) Drug/Non [...] Problem Status W/U Status Risk Notes Problem 361626580 Colon cancer screening (Z12.11) Active confirmed Problem 96161046 Encounter for other preprocedural examination (Z01.818) Active confirmed Problem 523511519 Long-term use of aspirin therapy (Z79.82) Active confirmed Problem 25574998 Coccydynia (M53.3) Active confirmed Problem 666576503 Perianal dermatitis (L30.9) Active confirmed Plan Of Treatment Future Test Test Name Order Date COLONOSCOPY 12/02/2018 Insurance Providers Payer Name Payer Address Payer Phone Subscriber Number Group Number Insured Name Patient Relationship to Insured Coverage Start Date Coverage End Date [employer] [address] [facility] [place] [address] [id number] MARI BUTLER Self - patient is the insured Medical (General) History Medical History History ICD Code Screening colonoscopy 04/05, normal, ten- year followup Surgical History Surgery Date(Month/Year) uterine ablation x 2 2015 right foot surgery 01/2018
== END 2025-07-14 09:42 | disposition home or self-care (01) ==
LOC: HO.XRAY 09:41
DX: R05.9 Cough, unspecified (principal)
CPT/HCPCS: 71046

== ENCOUNTER → 2025-07-14 09:46 | Outpatient (BNV) | payer BC, SELFPAY | PROVIDERS: Visit Provider Radiology Diagnostic Radiology | DX: R05.9 Cough, unspecified (principal) | CPT/HCPCS: 71046 ==